=== PATIENT | male | born 1955 | race Caucasian/White ===

== ENCOUNTER 2020-10-25 17:41 | Observation (INO) | payer BC ==
[2020-10-25 18:45] LABS: HCT 42.2 % (39.0-53.0); Lymphocytes % (A) 21 %; MCH 31.2 pg (25.0-35.0); MCHC 35.4 g/dL (31.0-37.0); MCV 88.2 fL (80.0-100.0); Mean Platelet Volume 8.9; Monocytes % (A) 6 %; Neutrophils % (A) 69 %; Platelet Count 195 k/uL (150-450); RBC 4.79 m/uL (4.30-5.90); RDW 12.3 % (11.5-15.5); WBC 6.4 k/uL (3.8-10.6)
[2020-10-25 18:46] LABS: Basophils # (A) 0.1 k/uL (0-0.2); Basophils % (A) 1 %; Eosinophils # (A) 0.2 k/uL (0-0.7); Eosinophils % (A) 3 %; Lymphocytes # (A) 1.4 k/uL (1.0-4.8); Monocytes # (A) 0.4 k/uL (0-1.0); Neutrophils # (A) 4.4 k/uL (1.3-7.7)
[2020-10-25 18:57] LABS: ALT 17 U/L (4-49); AST 18 U/L (17-59); African American GFR (CKD) 75 (>60 ml/min/1.73 sqM); Alcohol <10 mg/dL; Alkaline Phosphatase 48 U/L (38-126); Anion Gap 7 mmol/L; Blood Urea Nitrogen 24 mg/dL (9-20); Calcium 9.8 mg/dL (8.4-10.2); Carbon Dioxide 24 mmol/L (22-30); Chloride 107 mmol/L (98-107); Glucose 128 mg/dL (74-99); Non-African American GFR(CKD) 65 (>60 ml/min/1.73 sqM); Sodium 138 mmol/L (137-145); Total Bilirubin 0.3 mg/dL (0.2-1.3); Total Protein 6.3 g/dL (6.3-8.2)
[2020-10-25 19:31] LABS: INR 0.9 (<1.2); Partial Thromboplastin Time 22.2 sec (22.0-30.0)
[2020-10-25 19:34] LABS: Appearance,Urine Clear (Clear); Bilirubin,Urine Negative (Negative); Blood,Urine Negative (Negative); Color,Urine Yellow; Glucose,Urine (UA) Negative (Negative); Ketones,Urine Negative (Negative); Leukocyte Esterase,Urine Negative (Negative); Nitrite,Urine Negative (Negative); PH, Urine 5.5 (5.0-8.0); Protein,Urine Negative (Negative); Specific Gravity,Urine 1.015 (1.001-1.035); Urobilinogen,Urine <2.0 mg/dL (<2.0)
[2020-10-25 19:46] LABS: Amphetamine Screen,Urine Not Detected (NotDetected); Barbiturate Screen,Urine Not Detected (NotDetected); Benzodiazepines Screen,Urine Not Detected (NotDetected); Cocaine Screen,Urine Not Detected (NotDetected); Methadone Screen, Urine Not Detected (NotDetected); Opiate Screen,Urine Not Detected (NotDetected); Oxycodone Screen, Urine Not Detected (NotDetected); Phencyclidine Screen,Urine Not Detected (NotDetected); Tricyclic Antidepressant,Urine Not Detected (NotDetected); Urn Cannabinoid Scrn Not Detected (NotDetected)
--- NOTE | 2020-10-25 19:48 | CT ---
EXAMINATION TYPE: CT brain wo con DATE OF EXAM: 10/25/2020 HISTORY: Altered mental status.. CT DLP: 1145.8 mGycm. Automated Exposure Control for Dose Reduction was Utilized. TECHNIQUE: CT scan of the head is performed without contrast. COMPARISON: None FINDINGS: There is no acute intracranial hemorrhage, midline shift, or mass effect identified. No abnormal extr a-axial fluid collection. No ventriculomegaly. No depressed calvarial fracture. Visualized sinuses an d mastoid air cells are clear. IMPRESSION: No acute intracranial hemorrhage, midline shift, or mass effect.
--- NOTE | 2020-10-25 19:57 | XR ---
EXAMINATION TYPE: XR chest 2V DATE OF EXAM: 10/25/2020 CLINICAL HISTORY: altered mental status. TECHNIQUE: Frontal and lateral view of the chest. COMPARISON: None FINDINGS: The cardiomediastinal silhouette is within normal limits for size. Pulmonary vasculature i s normal. There is no focal air space opacity. No pleural effusion. No pneumothorax seen. No acute d isplaced osseous fracture. IMPRESSION: No acute cardiopulmonary process.
--- NOTE | 2020-10-25 20:05 | CT ---
EXAMINATION TYPE: CT angio head neck DATE OF EXAM: 10/25/2020 HISTORY: Altered mental status COMPARISON: Same day CT brain without Automated Exposure Control for Dose Reduction was Utilized. TECHNIQUE: CTA scan of the head and neck is performed , patient injected with 65 mL of Isovue 370, a xial images are obtained, coronal and sagittal reformatted images are reviewed. 3D reconstructed imag es are created on an independent workstation and reviewed. FINDINGS: Carotid/Vascular Structures: The bilateral common carotid and internal carotid arteries are widely pa tent with no evidence of occlusion, hemodynamically significant stenosis, or aneurysm. The bilateral vertebral arteries are patent. [place] of [place]: The bilateral A1 segments join into a large single A2 segment, which may represent azygos variant anatomy. The remainder of the upper [place] of [place] is patent with no occlusion or aneurysm . IMPRESSION: 1. The bilateral A1 segments join into a large single A2 segment. This may represent variant anatomy azygos anterior cerebral artery. A2 segment occlusion felt to be less likely, however not excluded. C linical correlation is recommended. 2. No evidence of occlusion or significant stenosis of the arteries of the neck. NASCET criteria was used in interpretation of this exam?
[2020-10-25] MEDS ORDERED: ACETAMINOPHEN TAB 325 MG TAB PO PRN (21:05)
[2020-10-25] MEDS ORDERED: NALOXONE 0.4 MG/ML 1 ML VIAL IV PRN (21:05)
[2020-10-25] MEDS ORDERED: ASPIRIN 325 MG TAB PO STA (21:07)
--- NOTE | 2020-10-25 21:43 | ED ---
General Adult HPI - General Chief complaint: Altered Mental Status Stated complaint: Neuro Symptoms/Loss of Memory Time Seen by Provider: 10/25/20 18:04 Source: patient Mode of arrival: ambulatory Limitations: no limitations - History of Present Illness Initial comments: I evaluated the patient and he was placed in a room. Patient is a 65-year-old male with past medical history remarkable for hypertension who presents emergency Department complaining of difficult to explain confusion. Patient works from home and was working on his computer this morning around 10 or 11 AM when he experienced episodes of confusion which included the inability to use his computer. He states that he forgot how to use a computer. States this is never occurred previously. He denies any other acute complaints. Skin confusion seems to come and go but hasn't been as bad since this morning. He has a difficult time describing it. Denies any weakness, numbness. Denies any headache, falls, trauma. Denies any chest pain, shortness breath, abdominal pain, nausea, vomiting. Denies any exposure COVID-19. His no other acute complaints at this time. He was not vaccinated for COVID19. - Related Data Home Medications Medication Instructions Recorded Confirmed Aspirin EC [Ecotrin Low Dose] 81 mg PO DAILY 10/25/20 10/25/20 Cholecalciferol [Vitamin D3 (25 25 mcg PO DAILY 10/25/20 10/25/20 Mcg = 1000 Iu)] Pravastatin Sodium [Pravachol] 20 mg PO DAILY 10/25/20 10/25/20 Tamsulosin HCl [Flomax] 0.4 mg PO DAILY 10/25/20 10/25/20 Zinc 50 mg PO DAILY 10/25/20 10/25/20 allopurinoL [Zyloprim] 100 mg PO DAILY 10/25/20 10/25/20 amLODIPine BESYLATE/BENAZEPRIL 1 cap PO DAILY 10/25/20 10/25/20 [amLODIPine BESYLATE/BENAZEPRIL 5-10 mg] Allergies Allergy/AdvReac Type Severity Reaction Status Date / Time No Known Allergies Allergy Verified 10/25/20 18:59 Review of Systems ROS Statement: Those systems with pertinent positive or pertinent negative responses have been documented in the HPI. Review of Systems: CONST: Denies fever EYES: Denies blurry vision ENT: Denies nasal congestion C/V: Denies Chest pain RESP: Denies shortness of breath GI: Denies abdominal pain : Denies dysuria SKIN: Denies rash. MSK: Denies joint pain. NEURO: Endorses confusion ROS Other: All systems not noted in ROS Statement are negative. Past Medical History Past Medical History: Hypertension History of Any Multi-Drug Resistant Organisms: None Reported Past Surgical History: Joint Replacement Additional Past Surgical History / Comment(s): lt knee Past Psychological History: No Psychological Hx Reported Smoking Status: Never smoker Past Alcohol Use History: Occasional Past Drug Use History: None Reported General Exam - General Exam Comments Initial Comments: General: Appears in no acute distress. HEAD: Normal with no signs of head trauma. EYES: PERRLA, EOMI, conjunctiva normal, no discharge. Pupils are 3 mm bilaterally. No visual deficits. ENT: Hearing grossly intact, normal oropharynx. RESPIRATORY: Clear breath sounds bilaterally. No wheezes, rales, or rhonchi. C/V: Regular rate and rhythm. S1 and S2 auscultated, no edema, peripheral pulses 2+ and intact throughout ABD: Abd is soft, nontender, nondistended EXT: Normal range of motion, no obvious deformity SKIN: No rashes or lesions observed on exposed skin. NEURO: Alert and oriented 4. Cranial nerves II through XII are intact. No focal sensory strength deficits. Patient's cerebellar function is intact as evident by normal finger to nose testing, intact [id number] testing, as well as negative dysdiadochokinesia. Patient is able to ambulate without difficulty. GCS is 15. NIH stroke scale is 0. No confusion is elicited at this time. Limitations: no limitations Course Vital Signs 10/25/20 10/25/20 17:55 19:57 Temperature 98.6 F Pulse Rate 61 52 L Respiratory 20 18 Rate Blood Pressure 134/89 135/99 O2 Sat by Pulse 96 97 Oximetry Medical Decision Making - Medical Decision Making Based on the patient's presentation and physical exam, I'm uncertain what is causing his current confusion. He is also endorsing generalized fatigue. Therefore we will obtain basic labs, troponin, as well as CT imaging of the head. Patient was in agreement this plan. Stroke pager does not need to be activated as his NIH is 0. EKG and chest x-ray will also be obtained., 19 t esting will be obtained. He'll be given a 1 L fluid bolus. He was in agreement this plan. Patient's EKG showed sinus bradycardia but no signs of acute ischemia. Chest x- ray showed no acute cardiopulmonary process. Patient's lavatory studies are relatively unremarkable, including an indeterminate troponin 0.017, as well as a negative Covid screening. CT brain without contrast showed no acute intracranial process. CTA of the neck and brain revealed findings suggestive of a anatomical variant involving segments of the [place] of [place], without evidence of acute blockage. Remainder of the CT head is unremarkable. On reevaluation, patient is still subjectively concerned regarding his confusion earlier. States he feels unchanged and is still fatigued. He is alert and oriented 4. We discussed the results of his imaging and labs and That I would like to admit him to the hospital for neurology evaluation and MRI. He was in agreement this plan. Patient was given an aspirin. I spoke with neurology, Dr. Moses who was in agreement this plan. I spoke with the admitting physician, Dr. Dalton who accepted the patient. Patient was therefore admitted to observation to telemetry bed in stable condition. - Lab Data Result diagrams: 10/25/20 18:34 10/25/20 18:34 Lab Results 10/25/20 10/25/20 10/25/20 Range/Units 18:34 18:34 18:34 WBC 6.4 (3.8-10.6) k/uL RBC 4.79 (4.30-5.90) m/uL Hgb 15.0 (13.0-17.5) gm/dL Hct 42.2 (39.0-53.0) % MCV 88.2 (80.0-100.0) fL MCH 31.2 (25.0-35.0) pg MCHC 35.4 (31.0-37.0) g/dL RDW 12.3 (11.5-15.5) % Plt Count 195 (150-450) k/uL MPV 8.9 Neutrophils % 69 % Lymphocytes % 21 % Monocytes % 6 % Eosinophils % 3 % Basophils % 1 % Neutrophils # 4.4 (1.3-7.7) k/uL Lymphocytes # 1.4 (1.0-4.8) k/uL Monocytes # 0.4 (0-1.0) k/uL Eosinophils # 0.2 (0-0.7) k/uL Basophils # 0.1 (0-0.2) k/uL PT 10.0 (9.0-12.0) sec INR 0.9 (<1.2) APTT 22.2 (22.0-30.0) sec Sodium (137-145) mmol/L Potassium (3.5-5.1) mmol/L Chloride (98-107) mmol/L Carbon Dioxide (22-30) mmol/L Anion Gap mmol/L BUN (9-20) mg/dL Creatinine (0.66-1.25) mg/dL Est GFR (CKD-EPI)AfAm (>60 ml/min/1.73 sqM) Est GFR (CKD-EPI)NonAf (>60 ml/min/1.73 sqM) Glucose (74-99) mg/dL Calcium (8.4-10.2) mg/dL Total Bilirubin (0.2-1.3) mg/dL AST (17-59) U/L ALT (4-49) U/L Alkaline Phosphatase (38-126) U/L Ammonia (<30) umol/L Troponin I (0.000-0.034) ng/mL Total Protein (6.3-8.2) g/dL Albumin (3.5-5.0) g/dL Urine Color Yellow Urine Appearance Clear (Clear) Urine pH 5.5 (5.0-8.0) Ur Specific [place] 1.015 (1.001-1.035) Urine Protein Negative (Negative) Urine Glucose (UA) Negative (Negative) Urine Ketones Negative (Negative) Urine Blood Negative (Negative) Urine Nitrite Negative (Negative) Urine Bilirubin Negative (Negative) Urine Urobilinogen <2.0 (<2.0) mg/dL Ur Leukocyte Esterase Negative (Negative) Urine Opiates Screen Not Detected (NotDetected) Ur Oxycodone Screen Not Detected (NotDetected) Urine Methadone Screen Not Detected (NotDetected) Ur Propoxyphene Screen Not Detected (NotDetected) Ur Barbiturates Screen Not Detected (NotDetected) U Tricyclic Antidepress Not Detected (NotDetected) Ur Phencyclidine Scrn Not Detected (NotDetected) Ur Amphetamines Screen Not Detected (NotDetected) U Methamphetamines Scrn Not Detected (NotDetected) U Benzodiazepines Scrn Not Detected (NotDetected) Urine Cocaine Screen Not Detected (NotDetected) U Marijuana (THC) Screen Not Detected (NotDetected) Serum Alcohol mg/dL Coronavirus (PCR) (Not Detectd) 10/25/20 10/25/20 10/25/20 Range/Units 18:34 18:34 18:34 WBC (3.8-10.6) k/uL RBC (4.30-5.90) m/uL Hgb (13.0-17.5) gm/dL Hct (39.0-53.0) % MCV (80.0-100.0) fL MCH (25.0-35.0) pg MCHC (31.0-37.0) g/dL RDW (11.5-15.5) % Plt Count (150-450) k/uL MPV Neutrophils % % Lymphocytes % % Monocytes % % Eosinophils % % Basophils % % Neutrophils # (1.3-7.7) k/uL Lymphocytes # (1.0-4.8) k/uL Monocytes # (0-1.0) k/uL Eosinophils # (0-0.7) k/uL Basophils # (0-0.2) k/uL PT (9.0-12.0) sec INR (<1.2) APTT (22.0-30.0) sec Sodium 138 (137-145) mmol/L Potassium 4.0 (3.5-5.1) mmol/L Chloride 107 (98-107) mmol/L Carbon Dioxide 24 (22-30) mmol/L Anion Gap 7 mmol/L BUN 24 H (9-20) mg/dL Creatinine 1.18 (0.66-1.25) mg/dL Est GFR (CKD-EPI)AfAm 75 (>60 ml/min/1.73 sqM) Est GFR (CKD-EPI)NonAf 65 (>60 ml/min/1.73 sqM) Glucose 128 H (74-99) mg/dL Calcium 9.8 (8.4-10.2) mg/dL Total Bilirubin 0.3 (0.2-1.3) mg/dL AST 18 (17-59) U/L ALT 17 (4-49) U/L Alkaline Phosphatase 48 (38-126) U/L Ammonia 24 (<30) umol/L Troponin I 0.017 (0.000-0.034) ng/mL Total Protein 6.3 (6.3-8.2) g/dL Albumin 4.0 (3.5-5.0) g/dL Urine Color Urine Appearance (Clear) Urine pH (5.0-8.0) Ur Specific [place] (1.001-1.035) Urine Protein (Negative) Urine Glucose (UA) (Negative) Urine Ketones (Negative) Urine Blood (Negative) Urine Nitrite (Negative) Urine Bilirubin (Negative) Urine Urobilinogen (<2.0) mg/dL Ur Leukocyte Esterase (Negative) Urine Opiates Screen (NotDetected) Ur Oxycodone Screen (NotDetected) Urine Methadone Screen (NotDetected) Ur Propoxyphene Screen (NotDetected) Ur Barbiturates Screen (NotDetected) U Tricyclic Antidepress (NotDetected) Ur Phencyclidine Scrn (NotDetected) Ur Amphetamines Screen (NotDetected) U Methamphetamines Scrn (NotDetected) U Benzodiazepines Scrn (NotDetected) Urine Cocaine Screen (NotDetected) U Marijuana (THC) Screen (NotDetected) Serum Alcohol <10 mg/dL Coronavirus (PCR) (Not Detectd) 10/25/20 Range/Units 18:34 WBC (3.8-10.6) k/uL RBC (4.30-5.90) m/uL Hgb (13.0-17.5) gm/dL Hct (39.0-53.0) % MCV (80.0-100.0) fL MCH (25.0-35.0) pg MCHC (31.0-37.0) g/dL RDW (11.5-15.5) % Plt Count (150-450) k/uL MPV Neutrophils % % Lymphocytes % % Monocytes % % Eosinophils % % Basophils % % Neutrophils # (1.3-7.7) k/uL Lymphocytes # (1.0-4.8) k/uL Monocytes # (0-1.0) k/uL Eosinophils # (0-0.7) k/uL Basophils # (0-0.2) k/uL PT (9.0-12.0) sec INR (<1.2) APTT (22.0-30.0) sec Sodium (137-145) mmol/L Potassium (3.5-5.1) mmol/L Chloride (98-107) mmol/L Carbon Dioxide (22-30) mmol/L Anion Gap mmol/L BUN (9-20) mg/dL Creatinine (0.66-1.25) mg/dL Est GFR (CKD-EPI)AfAm (>60 ml/min/1.73 sqM) Est GFR (CKD-EPI)NonAf (>60 ml/min/1.73 sqM) Glucose (74-99) mg/dL Calcium (8.4-10.2) mg/dL Total Bilirubin (0.2-1.3) mg/dL AST (17-59) U/L ALT (4-49) U/L Alkaline Phosphatase (38-126) U/L Ammonia (<30) umol/L Troponin I (0.000-0.034) ng/mL Total Protein (6.3-8.2) g/dL Albumin (3.5-5.0) g/dL Urine Color Urine Appearance (Clear) Urine pH (5.0-8.0) Ur Specific [place] (1.001-1.035) Urine Protein (Negative) Urine Glucose (UA) (Negative) Urine Ketones (Negative) Urine Blood (Negative) Urine Nitrite (Negative) Urine Bilirubin (Negative) Urine Urobilinogen (<2.0) mg/dL Ur Leukocyte Esterase (Negative) Urine Opiates Screen (NotDetected) Ur Oxycodone Screen (NotDetected) Urine Methadone Screen (NotDetected) Ur Propoxyphene Screen (NotDetected) Ur Barbiturates Screen (NotDetected) U Tricyclic Antidepress (NotDetected) Ur Phencyclidine Scrn (NotDetected) Ur Amphetamines Screen (NotDetected) U Methamphetamines Scrn (NotDetected) U Benzodiazepines Scrn (NotDetected) Urine Cocaine Screen (NotDetected) U Marijuana (THC) Screen (NotDetected) Serum Alcohol mg/dL Coronavirus (PCR) Not Detected (Not Detectd) - EKG Data -: EKG Interpreted by Me EKG Comments: 12-lead Electrocardiogram Interpretation Note EKG was reviewed and interpreted by myself. 12-lead ECG performed at 18:18 is interpreted by me as revealing sinus bradycardia at a rate of 56 beats per minute. B[place] is normal. OK interval is 164 ms, QRS duration is 90 ms, QTc is 414 ms.. There were no ST or T wave abnormalities to suggest myocardial ischemia or injury. R wave progression across the precordium was satisfactory. By my interpretation this EKG is non-diagnostic for acute ischemia. Disposition Clinical Impression: Confusion, Fatigue Disposition: ADMITTED IP TO THIS HOSP Condition: Stable Referrals: Carlos Husain DO [Primary Care Provider] - 1-2 days
--- NOTE | 2020-10-26 00:49 | P.HPIM ---
History of Present Illness H&P Date: 10/25/20 Patient is a 65-year-old male with a PMH of hypertension who presented to the emergency room with complaints of confusion. The patient reports that he had been working at his office at around 11 AM this morning when he suddenly felt that he was not able to navigate his computer. He reports that he felt as though he had simply forgotten how to use the mouse with a keyboard. He subsequently decided to leave his office and drove to separate meetings without incident. He subsequently came back to the office and found he was still unable to use his computer, at which time he decided to come to the emergency room. During the interview, the patient asked if he had a likely panic attack. Upon further questioning, he stated that he has been under a lot of stress recently as him and his purchased a condominium in [place] that was beyond their budget. He reports that the 15 day window backing out of the contract had yesterday, and he feels that it might be causing an undue amount of stress on him over the past 24 hours. He states that his [id number] had history of panic attacks and that he did not have the characteristic shortness of breath or chest tightness and sweating but did feel an overwhelming sensation that allowed him to not work on his computer. He denied any history of panic attacks or anxiety and states that he is "blessed" with a wonderful life. Den ied suicidal ideation. Denied a history of CVA. He denied experiencing visual disturbances, weakness, numbness, tingling. Also denied facial asymmetries, or speech impairment. Also denied chest discomfort, shortness of breath, fever, chills, cough. Denied nausea, vomiting, abdominal pain, diarrhea. Imaging in the emergency room unremarkable including brain CT with CT angiogram showing a possible normal variant. EKG showing sinus bradycardia [address]/T-wave changes noted as reviewed by me. Review of systems: Pertinent positives and negatives as discussed in HPI, a complete review of systems was performed and all other systems are negative. Physical examination: General: non toxic, no distress, appears at stated age, obese Derm: no unusual rashes/lesions no unusual ecchymoses, warm, dry Head: atraumatic, normocephalic, symmetric Eyes: EOMI, no lid lag, anicteric sclera, pupils equal round reactive to light ENT: Nose and ears atraumatic, no thrush, no pharyngeal erythema Neck: No thyromegaly, no cervical lymphadenopathy, trachea midline, supple Mouth: no lip lesion, mucus membranes moist Cardiovascular: S1S2 reg, no murmur, positive posterior tibial pulse bilateral, no edema, capillary refill less than 2 seconds Lungs: CTA bilateral, no rhonchi, no rales , no accessory muscle use Abdominal: soft, nontender to palpation, no guarding, no appreciable organomegaly, normal bowel sounds Ext: no gross muscle atrophy, muscle strength 5 out of 5 in all 4 extremities grossly, no contractures, Neuro: CN II-XI grossly intact, light touch intact all 4 extremities, finger to nose within normal limits, Psych: Alert, oriented, appropriate affect Assessment/plan Inability to operate computer, suspected panic attack -Low suspicion for CVA at this time -Neuro checks -Cardiac monitoring -Psychiatry consult -Echocardiogram Chronic conditions: Hypertension, hyperlipidemia -Continue with home meds DVT prophylaxis -Heparin subcu The patient is admitted with an anticipated less than 2 midnight stay for evaluation of confusion. CODE STATUS: Full Code Discussed with: Patient Anticipated discharge date: in am Anticipated discharge place: Home Past Medical History Past Medical History: Hypertension History of Any Multi-Drug Resistant Organisms: None Reported Past Surgical History: Joint Replacement Additional Past Surgical History / Comment(s): lt knee Past Anesthesia/Blood Transfusion Reactions: No Reported Reaction Past Psychological History: No Psychological Hx Reported Smoking Status: Never smoker Past Alcohol Use History: Occasional Past Drug Use History: None Reported - Past Family History Father Family Medical History: Hypertension Medications and Allergies Home Medications Medication Instructions Recorded Confirmed Type Aspirin EC [Ecotrin Low Dose] 81 mg PO DAILY 10/25/20 10/25/20 History Cholecalciferol [Vitamin D3 (25 25 mcg PO DAILY 10/25/20 10/25/20 History Mcg = 1000 Iu)] Pravastatin Sodium [Pravachol] 20 mg PO DAILY 10/25/20 10/25/20 History Tamsulosin HCl [Flomax] 0.4 mg PO DAILY 10/25/20 10/25/20 History Zinc 50 mg PO DAILY 10/25/20 10/25/20 History allopurinoL [Zyloprim] 100 mg PO DAILY 10/25/20 10/25/20 History amLODIPine BESYLATE/BENAZEPRIL 1 cap PO DAILY 10/25/20 10/25/20 History [amLODIPine BESYLATE/BENAZEPRIL 5-10 mg] Allergies Allergy/AdvReac Type Severity Reaction Status Date / Time No Known Allergies Allergy Verified 10/25/20 18:59 Physical Exam Vitals: Vital Signs Temp Pulse Pulse Resp BP BP Pulse Ox 10/25/20 22:45 98.4 F 56 L 20 159/100 96 10/25/20 19:57 52 L 18 135/99 97 10/25/20 17:55 98.6 F 61 20 134/89 96 Intake and Output 10/25/20 10/25/20 10/26/20 14:59 22:59 06:59 Other: Weight 113.398 kg Results CBC & Chem 7: 10/25/20 18:34 10/25/20 18:34 Labs: Abnormal Lab Results - Last 24 Hours (Table) 10/25/20 Range/Units 18:34 BUN 24 H (9-20) mg/dL Glucose 128 H (74-99) mg/dL Thrombosis Risk Factor Assmnt - Choose All That Apply Each Factor Represents 1 point: Obesity (BMI >25) Each Risk Factor Represents 2 Points: Age 61-74 years Other congenital or acquired thrombophilia - If yes, enter type in comment: No Thrombosis Risk Factor Assessment Total Risk Factor Score: 3 Thrombosis Risk Factor Assessment Level: Moderate Risk
[2020-10-26] MEDS ORDERED: HEPARIN SODIUM,PORCINE/PF 5,000 UNIT/0.5 ML SYRINGE SQ SCH (08:00)
[2020-10-26 08:07] VITALS: BP 136/97; PULSE 58; RESP 17; TEMP 98.4
[2020-10-26] MEDS ORDERED: PRAVASTATIN SODIUM 20 MG TAB PO SCH (09:00)
[2020-10-26] MEDS ORDERED: lisinopriL 10 MG TAB PO SCH (09:00)
[2020-10-26] MEDS ORDERED: TAMSULOSIN 0.4 MG CAP.ER.24H PO SCH (09:00)
[2020-10-26] MEDS ORDERED: ASPIRIN 81 MG PO SCH (09:00)
[2020-10-26] MEDS ORDERED: ZINC SULFATE 220 MG CAP PO SCH (09:00)
[2020-10-26] MEDS ORDERED: CHOLECALCIFEROL 25 MCG (1000 IU) TABLET PO SCH (09:00)
[2020-10-26] MEDS ORDERED: amLODIPine 5 MG TAB PO SCH (09:00)
[2020-10-26] MEDS ORDERED: allopurinoL 100 MG TAB PO SCH (09:00)
--- NOTE | 2020-10-26 10:00 | ECHOF ---
Referral Reason:r/o CVA MEASUREMENTS -------- HEIGHT: 188.0 cm WEIGHT: 113.4 kg BP: 138/88 RVIDd: 3.7 cm (< 3.3) IVSd: 1.5 cm (0.6 - 1.1) LVIDd: 4.4 cm (3.9 - 5.3) LVPWd: 1.4 cm (0.6 - 1.1) IVSs: 1.9 cm LVIDs: 2.6 cm LVPWs: 1.9 cm LA Diam: 4.6 cm (2.7 - 3.8) LAESV Index (A-L): 39.36 ml/m Ao Diam: 3.7 cm (2.0 - 3.7) AV Cusp: 2.2 cm (1.5 - 2.6) MV EXCURSION: 17.180 mm (> 18.000) MV EF SLOPE: 57 mm/s (70 - 150) EPSS: 0.6 cm MV E Ney: 0.69 m/s MV DecT: 260 ms MV A Ney: 0.54 m/s MV E/A Ratio: 1.27 RAP: 5.00 mmHg RVSP: 28.98 mmHg FINDINGS -------- Resting bradycardia (HR<60bpm). This was a technically good study. The left ventricular size is normal. There is moderate concentric left ventricular hypertrophy. O verall left ventricular systolic function is normal with, an EF between 60 - 65 %. The right ventricle is mildly enlarged. LA is moderately dilated 34-39 ml/m2 The right atrium is normal in size. Interatrial and interventricular septum intact. The aortic valve is trileaflet, and appears structurally normal. No aortic stenosis or regurgitation. There is trace to mild mitral regurgitation. Trace tricuspid regurgitation present. There is no pulmonic regurgitation present. The aortic root size is normal. Normal inferior vena cava with normal inspiratory collapse consistent with estimated right atrial pre ssure of 5 mmHg. There is no pericardial effusion. CONCLUSIONS -------- 1. The left ventricular size is normal. 2. There is moderate concentric left ventricular hypertrophy. 3. Overall left ventricular systolic function is normal with, an EF between 60 - 65 %. 4. The right ventricle is mildly enlarged. 5. LA is moderately dilated 34-39 ml/m2 6. The aortic valve is trileaflet, and appears structurally normal. No aortic stenosis or regurgitati on. 7. There is trace to mild mitral regurgitation. 8. Trace tricuspid regurgitation present. 9. There is no pericardial effusion. CONSULTING SENIOR PRACTICE DIRECTOR: Iraida Keller RDCS
--- NOTE | 2020-10-26 14:50 | P.DS ---
Providers Date of admission: 10/25/20 21:05 Expected date of discharge: 10/26/20 Attending physician: Dianne Dalton MD Consults: 10/26/20 00:47 Consult Physician Urgent Consulting Provider: Prashanth Conner Consult Reason/Comments: Suspected panic attack Do you want consulting provider notified?: Already Contacted Primary care physician: [facility] Course: This is a 65-year-old male with past medical history significant for essential hypertension who presented to the emergency room with some confusion while he was working on the computer at his desk. Patient was evaluated in the ER and computed tomography scan of the brain and CT angiogram of the head and neck showed no acute abnormalities. Patient was THOUGHT to have a panic attack and he was placed on observation. His overall condition improved significantly. He was seen and evaluated by me on the day of discharge. Patient denies any headache, numbness, or weakness anywhere in his body. He was also evaluated by psychiatry. Patient was cleared for discharge home. He will resume his home medications and follow up with his PCP as directed. General: The patient is awake and alert, in no distress Eye: there is normal conjunctiva bilaterally. Neck: The neck is supple, there is no JVD. Cardiovascular: Normal S1-S2, no S3-S4, no murmurs. Respiratory: Lungs clear to auscultation bilaterally Gastrointestinal: Abdomen is soft, nontender Musculoskeletal: There is no pedal edema. Neurological:. Speech is normal. Skin: Skin is warm and dry Patient Condition at Discharge: Stable Plan - Discharge Summary Discharge Rx Participant: No New Discharge Prescriptions: Continue amLODIPine BESYLATE/BENAZEPRIL [amLODIPine BESYLATE/BENAZEPRIL 5-10 mg] 1 cap PO DAILY allopurinoL [Zyloprim] 100 mg PO DAILY Tamsulosin HCl [Flomax] 0.4 mg PO DAILY Zinc 50 mg PO DAILY Pravastatin Sodium [Pravachol] 20 mg PO DAILY Aspirin EC [Ecotrin Low Dose] 81 mg PO DAILY Cholecalciferol [Vitamin D3 (25 Mcg = 1000 Iu)] 25 mcg PO DAILY Discharge Medication List Aspirin EC [Ecotrin Low Dose] 81 mg PO DAILY 10/25/20 [History] Cholecalciferol [Vitamin D3 (25 Mcg = 1000 Iu)] 25 mcg PO DAILY 10/25/20 [History] Pravastatin Sodium [Pravachol] 20 mg PO DAILY 10/25/20 [History] Tamsulosin HCl [Flomax] 0.4 mg PO DAILY 10/25/20 [History] Zinc 50 mg PO DAILY 10/25/20 [History] allopurinoL [Zyloprim] 100 mg PO DAILY 10/25/20 [History] amLODIPine BESYLATE/BENAZEPRIL [amLODIPine BESYLATE/BENAZEPRIL 5-10 mg] 1 cap PO DAILY 10/25/20 [History] Follow up Appointment(s)/Referral(s): Carlos Husain DO [Primary Care Provider] - 1-2 days Discharge Disposition: HOME SELF-CARE
--- NOTE | 2020-10-26 17:49 | CONS ---
CONSULTATION DATE OF SERVICE: 10/26/2020. PURPOSE FOR CONSULTATION: Evaluate for confusion. HISTORY OF PRESENTING ILLNESS: The patient is a 65-year-old male. He presented to the ED after having experienced several hours where he was confused in regard to not being able to perform usual functions on his computer as part of his work. I had met with the patient and his . He provided most of the history, with his filling in some details. He said that around 11:15 he was feeling very rushed in his work. He said it felt like his thinking got into a "fog." He noted that he had lots of files pulled up on his computer that he would typically work on. He said he found himself not able to function and know what to do with the individual files. He said that he looked at some e-mails that he had sent and was not able to recall having sent those e-mails. He called his after some time. His noted that on the telephone call he was repeating himself continuously. He was also hesitant in his speech where he would stop in the middle of a thought and have trouble completing the thought. To her, he seemed anxious. 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 He said he started counting various supplies that were there but then got feeling in a confused state about his counting and that he just gave up and went back to work. Around 4 in the afternoon he drove home. He was continuing to feel disorganized in his thoughts. He drove for about an hour and 45 minutes in busy traffic. He said he was not aware that he had any difficulties with the drive. When he got home, he got back on his computer and found he was having the same problems where he did not know what to do to perform basic tasks. According to his , the patient is normally very quick on the computer and overall is a very organized person. She notes that he does get stressed at times where he may get quite intense, though he can recover from that fairly quickly. According to both, the patient may have some issues with anxiety on and off, though for the most part has been feeling fairly good in his general mental health. He has not had issues with depression. He has not been on any psychotropic medications nor been in any mental health care. He noted that his father suicided in 1983, which was a significant trauma for him. At that time his father had depression and alcohol issues. The patient has not had any significant past neurologic events. He noted that he did play hockey up to about 19 years ago. He did not think that during that time he might have suffered any significant head trauma. He has not had a history of seizures, falls, confusion. He said that things did seem to clear up for him since he has been in the hospital. He notes that yesterday throughout the time he was having these difficulties he did not note any problems with ambulation, coordination, balance, headaches, visual difficulties or weakness. His stated that both on the telephone and also when he was home his speech was normal as far as enunciation. She did not note any facial asymmetry. The patient did question whether he might have had some kind of panic attack, though he did not note any chest-related symptoms, tachycardia or GI distress. Current medications include zyloprim, Norvasc, 81 mg aspirin, Zestril, Pravachol, Flomax. MENTAL STATUS EXAM: The patient was lying in bed with his head up. He gave good eye contact. He answered questions appropriately. His thoughts were clear, coherent and goal-directed. He was spontaneous and interactive. His affect was in a reasonable range. He smiled. He had a friendly manner. His mood was even. He did not appear distressed. There was no indication of thought disorder. He denied thoughts of harm to self or others. On cognitive exam he was oriented x3 and alert. He could give details of events that were consistent with what is documented in the medical record. He could name most of his medications, though noted some of his medications are newer to him. He could say who the President and Mixing Operator were. He could give the days of the week in reverse order without difficulties. He could recall 3/3 objects in 4 minutes. Insight and judgment were good. Fund of knowledge was above average. ASSESSMENT: This 65-year-old male has had an episode of some disorganized thinking in relationship to his usual computer functioning at his work. He indicates that the best he is aware of at present the issues have resolved themselves. Imaging has been unremarkable. There are some positive findings on echocardiogram, which do not appear to relate to his presentation. At this point, there are no psychiatric or mental health interventions indicated. I discussed with the patient to be watchful for any range of neurologic symptoms and also to have good awareness when he is driving his car. We discussed that his symptoms may have related to anxiety. He apparently does have a tendency to run a low pulse, and it is possible he could have had panic symptoms with bradycardia that may have impacted some of his thinking. I discussed a therapeutic walking program to help reduce anxiety and that he could start a program on a regular basis. If some of these symptoms were to re-emerge, he could try to utilize therapeutic walking to see if that might help normalize the difficulties he had, should they re- emerge. The patient did state that his total cholesterol was around 170. I encouraged the patient to talk to his primary care physician to look at assertive means to manage lipids as a preventive program, especially given some of the heart findings that he has. From a psychiatric standpoint the patient is stable and cleared to be discharged. ESTHER / PARUL: [id number] /
== END 2020-10-26 15:00 | disposition home or self-care (01) ==
LOC: EC 17:41 → 6NMEDSUR 21:05
PROVIDERS: ADMIT Internal Medicine; ATTEND Internal Medicine
DX: R41.0 Disorientation, unspecified (principal); R53.83 Other fatigue; R00.1 Bradycardia, unspecified; I11.9 Hypertensive heart disease without heart failure; E78.5 Hyperlipidemia, unspecified; R29.700 NIHSS score 0; R40.2412 Glasgow coma scale score 13-15, at arrival to emergency department; E66.9 Obesity, unspecified; Z68.32 Body mass index [BMI] 32.0-32.9, adult; Z20.822 Contact with and (suspected) exposure to COVID-19; Z79.82 Long term (current) use of aspirin; Z79.899 Other long term (current) drug therapy; Z96.652 Presence of left artificial knee joint; Z82.49 Family history of ischemic heart disease and other diseases of the circulatory system; Z81.8 Family history of other mental and behavioral disorders
CPT/HCPCS: 96372; 99285; 36415; 93005; 93306; 80053; 82140; 84484 ×2; 85025; 85610; 85730; 81003; 80306; 80320; 87635; 71046; 70496; 70450; 70498; G0378 ×2; Q9967; J1644

== ENCOUNTER → 2024-01-07 | Outpatient (CLI) | payer MEDICARE ==
--- NOTE | 2024-01-07 17:20 | XR ---
EXAMINATION TYPE: XR knee complete RT DATE OF EXAM: 01/07/2024 3:03 PM COMPARISON: None CLINICAL INDICATION: Male, 68 years old with history of [id number] RT KNEE PAIN; [facility] TECHNIQUE: XR knee complete RT 3 views submitted. FINDINGS: No evidence of any acute osseous pathology, soft tissue swelling, or joint effusion is no patrice. Soft tissue in the prepatellar space IMPRESSION: 1. Prepatellar soft tissue edema without acute osseous pathology. 2. Mild tricompartmental osteoarthritic changes. [facility], , 01/07/2024 5:18 PM
== END | disposition home or self-care (01) ==
LOC: RADXRYALE 14:45
PROVIDERS: ATTEND Physician Assistant
DX: M17.11 Unilateral primary osteoarthritis, right knee (principal); R60.9 Edema, unspecified

== ENCOUNTER 2024-01-11 12:35 | Inpatient (IN) | payer MEDICARE ==
[2024-01-11 13:33] LABS: Basophils # (A) 0.1 k/uL (0-0.2); Basophils % (A) 1 %; Eosinophils # (A) 0.2 k/uL (0-0.7); Eosinophils % (A) 2 %; HCT 43.5 % (39.0-53.0); HGB 14.5 gm/dL (13.0-17.5); Lymphocytes # (A) 1.6 k/uL (1.0-4.8); Lymphocytes % (A) 23 %; MCH 30.1 pg (25.0-35.0); MCHC 33.2 g/dL (31.0-37.0); MCV 90.7 fL (80.0-100.0); Mean Platelet Volume 8.2; Monocytes # (A) 0.4 k/uL (0-1.0); Monocytes % (A) 6 %; Neutrophils # (A) 4.7 k/uL (1.3-7.7); Neutrophils % (A) 67 %; Platelet Count 229 k/uL (150-450); RDW 12.7 % (11.5-15.5)
[2024-01-11 13:43] LABS: ALT 11 U/L (4-49); AST 17 U/L (17-59); African American GFR (CKD) 76 (>60 ml/min/1.73 sqM); Albumin 3.8 g/dL (3.5-5.0); Alkaline Phosphatase 49 U/L (38-126); Anion Gap 6 mmol/L; Blood Urea Nitrogen 26 mg/dL (9-20); Calcium 9.8 mg/dL (8.4-10.2); Carbon Dioxide 21 mmol/L (22-30); Chloride 110 mmol/L (98-107); Glucose 104 mg/dL (74-99); Lipase 144 U/L (23-300); Magnesium 1.8 mg/dL (1.6-2.3); Non-African American GFR(CKD) 66 (>60 ml/min/1.73 sqM); Partial Thromboplastin Time 24.1 sec (22.0-30.0); Potassium 4.1 mmol/L (3.5-5.1); Prothrombin Time 10.7 sec (10.0-12.5); Sodium 137 mmol/L (137-145); Total Bilirubin 0.8 mg/dL (0.2-1.3); Total Protein 6.4 g/dL (6.3-8.2)
--- NOTE | 2024-01-11 14:14 | XR ---
EXAMINATION TYPE: XR chest 2V DATE OF EXAM: 01/11/2024 1:34 PM COMPARISON: 10/25/2020 CLINICAL INDICATION: Male, 68 years old with history of Chest Pain, , TECHNIQUE: PA and lateral views FINDINGS: Heart normal size. Aorta and pulmonary vasculature within normal limits. Some strandy atelectasis at the lower lungs no consolidation or pleural effusion. Some linear metallic density projects at the ri ght base of the neck, likely external artifact. IMPRESSION: Some strandy lower lung atelectasis. No acute process seen. [facility], , 01/11/2024 2:11 PM
--- NOTE | 2024-01-11 15:03 | ED ---
Chest Pain HPI - General Chief Complaint: Chest Pain Stated Complaint: chest/neck pain,SOB Time Seen by Provider: 01/11/24 12:40 Source: patient Mode of arrival: ambulatory Limitations: no limitations - History of Present Illness Initial Comments: 68-year-old male with past medical history of A-fib hypertension, hyperlipidemia who presents to the emergency department planing of chest pain. Patient states he saw his primary care doctor last week and was just diagnosed with A-fib. He was rate controlled. His doctor did want him to get into a senior account manager. He had an appointment today. States that he was on his way to the appointment but began having some chest pressure which was over the left side of his chest and radiated into his left jaw. Pain started around 11 AM and lasted until 1230 when it spontaneously resolved. Patient has no active chest pain at this time. He is not on any anticoagulation. He has no history of coronary disease. Denies fevers, chills or cough. No ripping or tearing sensation to his back. No other alleviating, precipitating or modifying factors - Related Data Home Medications Medication Instructions Recorded Confirmed Aspirin EC [Ecotrin Low Dose] 81 mg PO DAILY 10/25/20 01/11/24 Tamsulosin HCl [Flomax] 0.4 mg PO DAILY 10/25/20 01/11/24 allopurinoL [Zyloprim] 100 mg PO DAILY 10/25/20 01/11/24 Chlorthalidone [Hygroton] 25 mg PO DAILY 01/11/24 01/11/24 amLODIPine BESYLATE/BENAZEPRIL 1 cap PO DAILY 01/11/24 01/11/24 [Lotrel 5-20 mg Capsule] Allergies Allergy/AdvReac Type Severity Reaction Status Date / Time No Known Allergies Allergy Verified 01/11/24 14:34 Review of Systems ROS Statement: Those systems with pertinent positive or pertinent negative responses have been documented in the HPI. ROS Other: All systems not noted in ROS Statement are negative. Past Medical History Past Medical History: Atrial Fibrillation, Hyperlipidemia, Hypertension History of Any Multi-Drug Resistant Organisms: None Reported Past Surgical History: Joint Replacement Additional Past Surgical History / Comment(s): lt knee Past Anesthesia/Blood Transfusion Reactions: No Reported Reaction Past Psychological History: No Psychological Hx Reported Smoking Status: Never smoker Past Alcohol Use History: Occasional Past Drug Use History: None Reported - Past Family History Father Family Medical History: Hypertension General Exam Limitations: no limitations Course Vital Signs 01/11/24 01/11/24 01/11/24 12:37 14:00 15:00 Temperature 97.5 F L Pulse Rate 90 76 76 Respiratory 20 18 18 Rate Blood Pressure 111/85 124/92 124/90 O2 Sat by Pulse 97 98 98 Oximetry Chest Pain MDM - MDM Was pt. sent in by a medical professional or institution (, [facility], SECRETARY TO BOARD OF COMMISSIONERS, urgent care, hospital, or custodial...) When possible be specific @ -[No] Did you speak to anyone other than the patient for history (EMS, parent, family, police, friend...)? What history was obtained from this source @ -[No] Did you review nursing and triage notes (agree or disagree)? Why? @ -[I reviewed and agree with nursing and triage notes] Were old charts reviewed (outside hosp., previous admission, EMS record, old EKG, old radiological studies, urgent care reports/EKG's, custodial records)? Report findings @ -[No old charts were reviewed] Differential Diagnosis (chest pain, altered mental status, abdominal pain women, abdominal pain men, vaginal bleeding, weakness, fever, dyspnea, syncope, headache, dizziness, GI bleed, back pain, seizure, CVA, palpatations, mental health, musculoskeletal)? @ -[not applicable] EKG interpreted by me (3pts min.). @ -Yes and demonstrates A-fib with a rate of 88. QRS 92 QTc of 407. No acute ST segment elevations or depressions X-rays interpreted by me (1pt min.). @ -[None done] CT interpreted by me (1pt min.). @ -[None done] U/S interpreted by me (1pt. min.). @ -[None done] What testing was considered but not performed or refused? (CT, X-rays, U/S, l abs)? Why? @ -[None] What meds were considered but not given or refused? Why? @ -[None] Did you discuss the management of the patient with other professionals (professionals i.e. [facility] [place], SECRETARY TO BOARD OF COMMISSIONERS, lab, RT, psych nurse, renal social worker, freelance copywriter, teacher, credit compliance officer, piano case maker)? Give summary @ -[No] Was smoking cessation discussed for >3mins.? @ -[No] Was critical care preformed (if so, how long)? @ -[No] Were there social determinants of health that impacted care today? How? (Homelessness, low income, unemployed, alcoholism, drug addiction, transportation, low edu. Level, literacy, decrease access to med. care, residential, rehab)? @ -[No] Was there de-escalation of care discussed even if they declined (Discuss DNR or withdrawal of care, Hospice)? DNR status @ -[No] What co-morbidities impacted this encounter? (DM, HTN, Smoking, COPD, CAD, Cancer, CVA, ARF, Chemo, Hep., AIDS, mental health diagnosis, sleep apnea, morbid obesity)? @ -[None] Was patient admitted / discharged? Hospital course, mention meds given and route, prescriptions, significant lab abnormalities, going to OR and other pertinent info. @ -[hospital course] Undiagnosed new problem with uncertain prognosis? @ -[No] Drug Therapy requiring intensive monitoring for toxicity (Heparin, Nitro, Insulin, Cardizem)? @ -[No] Were any procedures done? @ -[No] Diagnosis/symptom? @ -[default] Acute, or Chronic, or Acute on Chronic? @ -[default] Uncomplicated (without systemic symptoms) or Complicated (systemic symptoms)? @ -[default] Side effects of treatment? @ -[No] Exacerbation, Progression, or Severe Exacerbation? @ -[No] Poses a threat to life or bodily function? How? (Chest pain, [place], [place], pneumonia, PE, COPD, DKA, ARF, appy, cholecystitis, CVA, Diverticulitis, Homicidal, Suicidal, threat to staff... and all critical care pts) @ -[No] Disposition Clinical Impression: Chest pain, New onset a-fib Disposition: ADMITTED IP TO THIS [facility] Condition: Stable Is patient prescribed a controlled substance at d/c from ED?: No Referrals: Arvin Sutton DO [Primary Care Provider] - 1-2 days Time of Disposition: 15:07 Decision to Admit Reason: Admit from EC Decision Date: 01/11/24 Decision Time: 15:07
[2024-01-11] MEDS ORDERED: NALOXONE 0.4 MG/ML 1 ML VIAL IV PRN (15:07)
[2024-01-11] MEDS: ASPIRIN 81 MG PO STA (15:51)
--- NOTE | 2024-01-11 16:31 | P.HPIM ---
History of Present Illness H&P Date: 01/11/24 History of Presenting Illness: Patient is a very pleasant 68-year-old male with a past medical history of BPH, hypertension, hyperlipidemia, and recently diagnosed atrial fibrillation. He presented to the emergency department with a chief complaint of chest pain and palpitations. Patient reports over the past month he has been noticing an increased shortness of breath worse with exertion and made an appointment with his PCP last week and was informed that he had a new diagnosis of atrial fibrillation and was scheduled to be evaluated by human resources team member this morning. Patient reports this morning after eating some toast for breakfast and just sitting in the chair watching TV and resting he suddenly developed pain to his left anterior chest radiating to midsternal chest and up into the left side of his neck and lower jaw. Patient reports this pain was accompanied by feelings of palpitations like his heart was racing described this pain as a strong pressure. He denies experiencing pain like this in the past and reports initially he was trying to hold out until he went to the human resources team member office this afternoon but states when the pain did not go away he became concerned and knew he should go to the hospital for evaluation. Patient reports this pain lasted approximately an hour and a half prior to resolving without intervention. Patient denies having any headache, lightheadedness, dizziness, shortness of breath at rest, cough or congestion, nausea, vomiting, or experiencing any numbness/tingling/weakness/swelling in his extremities. Upon arrival to [facility], patient underwent evaluation in the emergency department. Vital signs upon arrival show blood pressure 111/85, heart rate 90, respiratory rate 20, temp 97.5 F, and SpO2 of 97% on room air. EKG completed showing atrial fibrillation with a controlled ventricular rate of 88 bpm. Chest x-ray completed showing some strandy lower lung atelectasis but negative for acute cardiopulmonary process. Labs were completed and reviewed. CBC unremarkable. Coagulation profile normal findings. BMP showing high anion gap metabolic acidosis with chloride of 110, bicarb of 21, and anion gap of 6 with elevated BUN of 26. Blood glucose was 104. Magnesium 1.8. Liver profile unremarkable. Troponin was negative at less than 0.012. Patient was admitted under our services with consultation to cardiology. Review of systems: Pertinent positives and negatives as discussed in HPI, a complete review of systems was performed and all other systems are negative. Physical exam: Vital signs reviewed and stable. General: Nontoxic, no distress and appears stated age. Derm: Skin warm and dry, normal coloration for ethnicity. Head: Atraumatic, normocephalic and symmetric. Eyes: EOM's intact, no lid lag, and anicteric sclera Mouth: no lip lesions, mucus membranes moist Cardiovascular: Irregularly irregular, no murmur, positive posterior tibial pulses bilaterally, and cap refill < 2 seconds. Lungs: Respirations even, regular, and unlabored on room air. Lungs CTA bilaterally, no rhonchi, no rales, no wheezing, and no accessory muscle usage. Abdominal: soft, nontender to palpation, no guarding, no appreciable organomegaly Ext: ROM intact. No gross muscle atrophy, no edema, no contractures Neuro: Speech clear, face symmetrical and CN II-XII grossly intact with no noted focal neuro deficits Psych: Alert and oriented to person, place, time, and situation. Appropriate and pleasant affect. Assessment and Plan of Care: Atypical chest pain, rule out acute coronary event Newly diagnosed atrial fibrillation with controlled ventricular rate Hypertension Hyperlipidemia -Cardiology consulted, appreciate recommendations -Telemetry monitoring -Trend troponins -Cardiac diet, NPO at midnight -Continue daily medication regimen with aspirin 81 mg daily, amlodipine 5 mg daily, and lisinopril 20 mg daily. Patient started on atorvastatin 40 mg nightly pending lipid profile results. -Lipid profile with a.m. labs. -Echocardiogram -[id number] score is 2. Heart score is 5. -Patient would like to discuss with human resources team member alternative treatment to DOAC's. At this time we will start patient on low intensity heparin infusion for anticoagulation for new onset atrial fibrillation. -Order placed for D-dimer and TSH with free T4. BPH -Continue Flomax 0.4 mg nightly. Data and imaging reviewed: As stated above in HPI CODE STATUS: Full Code DVT prophylaxis: Heparin Anticipated discharge date: Pending clinical course Anticipated discharge place: Home Patient was seen independently by Nurse Practitioner. This document was prepared using [employer] dictation software. Please allow for errors in galvanizer while rare they do occur. Pedro Beck NP rendered care for this patient independently, reviewed the findings and plan as documented in the note above and agree with plan. I did not physically speak with or examine the patient on this date. Past Medical History Past Medical History: Atrial Fibrillation, Hyperlipidemia, Hypertension History of Any Multi-Drug Resistant Organisms: None Reported Past Surgical History: Joint Replacement Additional Past Surgical History / Comment(s): lt knee Past Anesthesia/Blood Transfusion Reactions: No Reported Reaction Past Psychological History: No Psychological Hx Reported Smoking Status: Never smoker Past Alcohol Use History: Occasional Past Drug Use History: None Reported - Past Family History Father Family Medical History: Hypertension Medications and Allergies Home Medications Medication Instructions Recorded Confirmed Type Aspirin EC [Ecotrin Low Dose] 81 mg PO DAILY 10/25/20 01/11/24 History Tamsulosin HCl [Flomax] 0.4 mg PO DAILY 10/25/20 01/11/24 History allopurinoL [Zyloprim] 100 mg PO DAILY 10/25/20 01/11/24 History Chlorthalidone [Hygroton] 25 mg PO DAILY 01/11/24 01/11/24 History amLODIPine BESYLATE/BENAZEPRIL 1 cap PO DAILY 01/11/24 01/11/24 History [Lotrel 5-20 mg Capsule] Allergies Allergy/AdvReac Type Severity Reaction Status Date / Time No Known Allergies Allergy Verified 01/11/24 14:34 Physical Exam Vitals: Vital Signs Temp Pulse Resp BP Pulse Ox 01/11/24 15:00 76 18 124/90 98 01/11/24 14:00 76 18 124/92 98 01/11/24 12:37 97.5 F L 90 20 111/85 97 Intake and Output 01/11/24 01/11/24 01/11/24 06:59 14:59 22:59 Other: Weight 113.398 kg Results CBC & Chem 7: 01/11/24 13:25 01/11/24 13:25 Labs: Abnormal Lab Results - Last 24 Hours (Table) 01/11/24 Range/Units 13:25 Chloride 110 H (98-107) mmol/L Carbon Dioxide 21 L (22-30) mmol/L BUN 26 H (9-20) mg/dL Glucose 104 H (74-99) mg/dL
[2024-01-11] MEDS: HEPARIN SODIUM 1,000 UN/ML (10ML VL) IV ONE (16:59)
[2024-01-11] MEDS: HEPARIN SOD,PORK IN 0.45% NACL 25,000 UNIT in 0.45% NACL 1 250ML.BAG IV SCH (17:00)
[2024-01-11] MEDS: ATORVASTATIN 40 MG TAB PO SCH (22:34)
[2024-01-12] MEDS: HEPARIN SODIUM 1,000 UN/ML (10ML VL) IV PRN (00:41)
[2024-01-12 06:00] LABS: Partial Thromboplastin Time 64.6 sec (22.0-30.0); Prothrombin Time 10.8 sec (10.0-12.5)
[2024-01-12] MEDS ORDERED: HEPARIN SODIUM,PORCINE (1 ML) 2,500 UNIT in SODIUM CHLORIDE 0.9% 250 ML IRRIGATION PRN (07:00)
[2024-01-12] MEDS ORDERED: HEPARIN SODIUM,PORCINE 10,000 UNIT in SODIUM CHLORIDE 0.9% 1,000 ML IRRIGATION PRN (07:00)
[2024-01-12] MEDS ORDERED: NITROGLYCERIN SL TABS 0.4 MG TAB SUBLINGUAL PRN (08:11)
[2024-01-12] MEDS ORDERED: ALPRAZolam 0.5 MG TAB PO PRN (08:11)
[2024-01-12] MEDS ORDERED: ALPRAZolam 0.25 MG TAB PO PRN (08:11)
[2024-01-12 08:46] LABS: Basophils # (A) 0.04 X 10*3/uL (0.00-0.10); Basophils % (A) 0.6 %; Eosinophils % (A) 3.2 %; HCT 41.1 % (39.6-50.0); HGB 13.6 g/dL (13.0-17.0); Lymphocytes % (A) 32.3 %; MCHC 33.1 g/dL (32.0-37.0); MCV 87.6 FL (80.0-97.0); Mean Platelet Volume 10.7 FL (9.5-12.2); Monocytes # (A) 0.42 X 10*3/uL (0.20-1.00); Monocytes % (A) 6.8 %; NRBC Per 100 WBC 0 X 10*3/uL (0.00-0.01); Neutrophils % (A) 56.6 %; Platelet Count 222 X 10*3/uL (140-440); RBC 4.69 X 10*6/uL (4.40-5.60); RDW 12.8 % (11.5-14.5); WBC 6.19 X 10*3/uL (4.50-10.00)
[2024-01-12] MEDS: allopurinoL 100 MG TAB PO SCH (08:51)
[2024-01-12] MEDS: SODIUM CHLORIDE 0.9% 1,000 ML in EMPTY BAG 1 BAG IV SCH (08:51)
[2024-01-12] MEDS: ASPIRIN 325 MG TAB PO STA (08:51)
[2024-01-12] MEDS: ATORVASTATIN 80 MG TAB PO STA (08:51)
[2024-01-12] MEDS: lisinopriL 20 MG TAB PO SCH (08:51)
[2024-01-12] MEDS: amLODIPine 5 MG TAB PO SCH (08:51)
--- NOTE | 2024-01-12 09:27 | CA ---
Transthoracic Echo Report Name: Tato Cruz Age: 68 Gender: M : 1955 Exam Date: 01/11/2024 16:01 Exam Location: [facility] Ht (in): 74 Wt (lb): 250 Ordering Physician: Melyssa Morris DO Attending/Referring Phys: [id number], Alexandra Sap Technical Developer Iraida Keller, BHAVANI Procedure CPT: Indications: chest pain, new onset afib Cardiac Hx: Technical Quality: Fair Contrast 1: Total Dose (mL): Contrast 2: Total Dose (mL): MEASUREMENTS (Male / Female) Normal Values 2D ECHO LV Diastolic Diameter PLAX 4.7 cm 4.2 - 5.9 / 3.9 - 5.3 cm LV Systolic Diameter PLAX 3.3 cm IVS Diastolic Thickness 1.2 cm 0.6 - 1.0 / 0.6 - 0.9 cm LVPW Diastolic Thickness 1.5 cm 0.6 - 1.0 / 0.6 - 0.9 cm LV Relative Wall Thickness 0.6 RV Internal Dim ED PLAX 4.0 cm LA Systolic Diameter LX 4.3 cm 3.0 - 4.0 / 2.7 - 3.8 cm LV Diastolic Volume MOD BP 134.3 cm??? 67 - 155 / 56 - 104 cm??? LV Systolic Volume MOD BP 75.2 cm??? 22 - 58 / 19 - 49 cm??? LV Ejection Fraction MOD BP 44.0 % >= 55 % LV Cardiac Index MOD BP 2138.6 cm???/min???m??? LV Diastolic Volume MOD 4C 146.5 cm??? LV Systolic Volume MOD 4C 71.2 cm??? LV Ejection Fraction MOD 4C 51.4 % LV Cardiac Index MOD 4C 2720.7 cm???/min???m??? LV Diastolic Length 4C 8.8 cm LV Systolic Length 4C 7.7 cm LV Diastolic Volume MOD 2C 123.9 cm??? LV Systolic Volume MOD 2C 74.7 cm??? LV Ejection Fraction MOD 2C 39.7 % LV Cardiac Index MOD 2C 1776.5 cm???/min???m??? LV Diastolic Length 2C 8.9 cm LV Systolic Length 2C 8.3 cm LA Volume 119.5 cm??? 18 - 58 / 22 - 52 cm??? LA Volume Index 48.5 cm???/m??? 16 - 28 cm???/m??? M-MODE Aortic Root Diameter MM 3.4 cm AV Cusp Separation MM 2.3 cm DOPPLER AV Peak Velocity 114.6 cm/s AV Peak Gradient 5.2 mmHg MV Area PHT 3.1 cm??? MV Deceleration Time 243.8 ms TR Peak Velocity 217.8 cm/s TR Peak Gradient 19.0 mmHg Right Ventricular Systolic Press 23.3 mmHg FINDINGS Left Ventricle Left ventricular ejection fraction is estimated at 50-55 %. Left ventricular cavity size normal. Mildly increased left ventricular wall thickness. Left ventricular systolic function borderline normal Right Ventricle Mildly right ventricular dilatation. Right ventricular systolic pressure within normal limits. Right Atrium Moderate right atrial dilatation. No right atrial thrombus or mass seen. Left Atrium Mildly increased left atrial diameter. Severely increased left atrial volume. Moderately increased left atrial area. No left atrial thrombus or mass present. Mitral Valve Structurally normal mitral valve.mild mitral regurgitation. Aortic Valve Trileaflet aortic valve. No aortic valve stenosis or regurgitation. Tricuspid Valve Structurally normal tricuspid valve. Mild tricuspid regurgitation. Pulmonic Valve Pulmonic valve not well visualized. No pulmonic regurgitation. Pericardium No pericardial or pleural effusion. Aorta Normal size aortic root. Mild aortic dilatation at the level of the aortic arch. Mildly dilated proximal ascending aorta 40 mm CONCLUSIONS 1. Left ventricular systolic function borderline normal 2. Mild mitral and tricuspid regurgitation 3. Mildly dilated aortic root Previewed by: Dr. Kev Sher MD (Electronically Signed) Final Date: 12 January 2024 09:26
[2024-01-12] MEDS: SODIUM CHLORIDE 0.9% 1,000 ML IV ONE (09:40)
[2024-01-12] MEDS: LIDOCAINE 1% INJ 10MG/ML (20 ML MDV) SQ ONE (09:46)
[2024-01-12] MEDS: fentaNYL (PF) 50 MCG/ML 2 ML AMP IVP ONE (09:46)
[2024-01-12] MEDS: MIDAZOLAM 2 MG/2 ML VIAL IVP ONE (09:48)
[2024-01-12] MEDS: VERAPAMIL SYRINGE (5 MG/10 ML) INTRAARTER ONE (09:48)
[2024-01-12] MEDS: HEPARIN SODIUM,PORCINE 10,000 UNIT in SODIUM CHLORIDE 0.9% 1,000 ML IRRIGATION ONE (09:49)
[2024-01-12] MEDS: HEPARIN SODIUM,PORCINE (1 ML) 2,500 UNIT in SODIUM CHLORIDE 0.9% 250 ML IRRIGATION ONE (09:49)
[2024-01-12] MEDS: HEPARIN SODIUM 1,000 UN/ML (10ML VL) IVP ONE (09:53)
[2024-01-12] MEDS: IOPAMIDOL-370 100ML BTL INJ ONE (09:57)
[2024-01-12] MEDS ORDERED: RX INFO: IV CONTRAST WAS GIVEN 1 EACH MISC MISCELLANE PRN (10:18)
--- NOTE | 2024-01-12 10:19 | P.CRDCN ---
History of Present Illness Consult date: 01/12/24 Consult reason: chest pain, atrial fibrillation History of present illness: This is a 68-year-old male with past medical history of recent diagnosis of atrial fibrillation by PCP, hypertension, hyperlipidemia and patient took himself off pravastatin on November 16. Patient states that for about 5 weeks he has been having shortness of breath. He saw his PCP last and was diagnosed with atrial fibrillation and was set up with an appointment with with [facility] yesterday. He states he was on his way there and he developed worsening chest pressure. The pressure had been going on for about a month but was the worst. He states it was sudden onset after he ate some toast for breakfast. He does not feel that the chest pain is related to activity. He does state that he is not as active as he used to be and does have some dyspnea on exertion. No abdominal pain. No edema. He states he has felt some palpitations today for the first time. He denies dizziness. He has no history of COPD or lung disease, no stroke or seizure. He denies any lower extremity edema. He is a non-smoker. He drinks 1 cup of coffee per day. He drinks 4-6 alcoholic beverages per week. Discussed recommendations for cardiac catheterization and patient is willing to move forward with this today. Blood pressure 123/85, heart rate 67, pulse ox 98% on room air. -EKG: Atrial fibrillation 88 bpm -Chest x-ray: Strandy atelectasis -Echocardiogram reveals EF of 50 to 55%, mild mitral and tricuspid regurgitation, mildly dilated aortic root. -Laboratory studies: CBC within normal limits. D-dimer 0.87. Sodium 137, potassium 4.1, BUN 26 and creatinine 1.15. Troponin negative x 3. TSH 0.888. Liver function test are normal. Magnesium 1.8. -Home cardiac medications: Amlodipine/benazepril 5-20 mg 1 daily, aspirin 81 mg daily, chlorthalidone 25 mg daily. Review Of Systems: At the time of my exam: CONSTITUTIONAL: Denies fever or chills. HEENT: Denies blurred vision, vision changes, or eye pain. Denies hemoptysis CARDIOVASCULAR: Denies chest pain. Denies orthopnea. Denies PND. Denies palpitations RESPIRATORY: Denies shortness of breath. GASTROINTESTINAL: Denies abdominal pain. Denies nausea or vomiting. HEMATOLOGIC: Denies bleeding disorders. GENITOURINARY: Denies any blood in urine. SKIN: Denies puritis. Denies rash. Physical examination: Gen: This is a 68-year-old male in no acute distress VS: reviewed HEENT: Head is atraumatic, normocephalic. Pupils equal, round. Sclerae is anicteric. NECK: Supple. No JVD. LUNGS: Clear to auscultation. No wheezes or rhonchi. No intercostal retractions. HEART: Irregular rate and rhythm. No murmur. ABDOMEN: Soft No tenderness. EXTREMITIES: No pedal edema. No calf tenderness. NEUROLOGICAL: Patient is awake, alert and oriented x3. Assessment: Atypical chest pain, acute coronary ruled out with negative troponins Dyspnea on exertion, rule out coronary artery disease Paroxysmal atrial fibrillation of unknown onset Hypertension Hyperlipidemia alcohol intake of 4 to 6/week Plan: Resume patient's home cardiac medications Schedule patient for [facility] today with Dr. Sher Obtain 2-D echocardiogram and Doppler study to assess cardiac structure and function Alcohol abstinence recommended Further recommendations to follow based upon clinical course Thank you kindly for this consultation. Nurse practitioner note has been reviewed, I agree with documented findings and plan of care. Patient was seen and examined. Past Medical History Past Medical History: Atrial Fibrillation, Hyperlipidemia, Hypertension History of Any Multi-Drug Resistant Organisms: None Reported Past Surgical History: Bladder Surgery, Joint Replacement Additional Past Surgical History / Comment(s): lt knee, bladder surgery 2011, Past Anesthesia/Blood Transfusion Reactions: No Reported Reaction Past Psychological History: No Psychological Hx Reported Smoking Status: Never smoker Past Alcohol Use History: Occasional Past Drug Use History: None Reported - Past Family History Father Family Medical History: Hypertension Medications and Allergies Home Medications Medication Instructions Recorded Confirmed Type Aspirin EC [Ecotrin Low Dose] 81 mg PO DAILY 10/25/20 01/11/24 History Tamsulosin HCl [Flomax] 0.4 mg PO DAILY 10/25/20 01/11/24 History allopurinoL [Zyloprim] 100 mg PO DAILY 10/25/20 01/11/24 History Chlorthalidone [Hygroton] 25 mg PO DAILY 01/11/24 01/11/24 History amLODIPine BESYLATE/BENAZEPRIL 1 cap PO DAILY 11/25/24 11/25/24 History [Lotrel 5-20 mg Capsule] Allergies Allergy/AdvReac Type Severity Reaction Status Date / Time No Known Allergies Allergy Verified 01/11/24 14:34 Physical Exam Vitals: Vital Signs Temp Pulse Pulse Resp BP BP Pulse Ox 01/12/24 02:00 98.0 F 72 17 126/87 94 L 01/11/24 21:03 98.1 F 81 17 119/80 96 01/11/24 20:00 81 01/11/24 19:59 78 16 112/84 96 01/11/24 18:00 88 16 131/100 96 01/11/24 17:00 84 16 119/97 97 01/11/24 16:00 81 16 123/99 95 01/11/24 15:00 76 18 124/90 98 01/11/24 14:00 76 18 124/92 98 01/11/24 12:37 97.5 F L 90 20 111/85 97 Intake and Output 01/11/24 01/12/24 01/12/24 22:59 06:59 14:59 Intake Total 150.648 Balance 150.648 Intake: Intake, IV Titration 150.648 Amount Heparin Sod,Pork in 0.45% 150.648 NaCl 25,000 unit In 0.45 % NaCl 1 250ml.bag @ 8. 818 UNITS/KG/HR 9.999 mls /hr IV .Q24H [facility] Rx#: [id number] Other: # Voids 2 Weight 113.398 kg Results 01/12/24 05:28 01/11/24 13:25 Cardiac Enzymes 01/11/24 01/11/24 01/11/24 Range/Units 13:25 13:25 16:39 AST 17 (17-59) U/L Troponin I <0.012 0.013 (0.000-0.034) ng/mL 01/11/24 Range/Units 19:42 AST (17-59) U/L Troponin I 0.022 (0.000-0.034) ng/mL Coagulation 01/11/24 01/11/24 01/12/24 Range/Units 13:25 23:14 05:28 PT 10.7 10.8 (10.0-12.5) sec APTT 24.1 34.7 H 64.6 H (22.0-30.0) sec CBC 01/11/24 Range/Units 13:25 WBC 7.0 (3.8-10.6) k/uL RBC 4.80 (4.30-5.90) m/uL Hgb 14.5 (13.0-17.5) gm/dL Hct 43.5 (39.0-53.0) % Plt Count 229 (150-450) k/uL Comprehensive Metabolic Panel 01/11/24 Range/Units 13:25 Sodium 137 (137-145) mmol/L Potassium 4.1 (3.5-5.1) mmol/L Chloride 110 H (98-107) mmol/L Carbon Dioxide 21 L (22-30) mmol/L BUN 26 H (9-20) mg/dL Creatinine 1.15 (0.66-1.25) mg/dL Glucose 104 H (74-99) mg/dL Calcium 9.8 (8.4-10.2) mg/dL AST 17 (17-59) U/L ALT 11 (4-49) U/L Alkaline Phosphatase 49 (38-126) U/L Total Protein 6.4 (6.3-8.2) g/dL Albumin 3.8 (3.5-5.0) g/dL Current Medications Generic Name Dose Route Start Last Admin Trade Name Freq PRN Reason Stop Dose Admin Allopurinol 100 mg 01/12/24 09:00 Allopurinol 100 Mg Tab PO DAILY [facility] Amlodipine Besylate 5 mg 01/12/24 09:00 Amlodipine 5 Mg Tab PO DAILY [facility] Aspirin 81 mg 01/12/24 09:00 Aspirin 81 Mg PO DAILY [facility] Atorvastatin Calcium 40 mg 01/11/24 21:00 01/11/24 22:34 Atorvastatin 40 Mg Tab PO Not Given HS [facility] Chlorthalidone 25 mg 01/12/24 09:00 Chlorthalidone 25 Mg Tab PO DAILY [facility] Heparin Sodium (Porcine) 0 unit 01/11/24 16:31 01/12/24 00:41 Heparin Sodium 1,000 Un/Ml (10ml Vl) IV 4,000 unit PER PROTOCOL PRN Administration Low PTT Protocol Heparin Sodium/Sodium Chloride 250 mls @ 9.999 mls/hr 01/11/24 16:45 01/12/24 06:10 25,000 unit/ Sodium Chloride IV 11.818 units/kg/hr .Q24H [facility] 13.401 mls/hr Titration Protocol 8.818 UNITS/KG/HR Lisinopril 20 mg 01/12/24 09:00 Lisinopril 20 Mg Tab PO DAILY [facility] Naloxone HCl 0.2 mg 01/11/24 15:07 Naloxone 0.4 Mg/Ml 1 Ml Vial IV Q2M PRN Opioid Reversal Tamsulosin HCl 0.4 mg 01/12/24 09:00 Tamsulosin 0.4 Mg Cap.Er.24h PO DAILY [facility] Intake and Output 01/11/24 01/12/24 01/12/24 22:59 06:59 14:59 Intake Total 150.648 Balance 150.648 Intake: Intake, IV Titration 150.648 Amount Heparin Sod,Pork in 0.45% 150.648 NaCl 25,000 unit In 0.45 % NaCl 1 250ml.bag @ 8. 818 UNITS/KG/HR 9.999 mls /hr IV .Q24H [facility] Rx#: [id number] Other: # Voids 2 Weight 113.398 kg 01/11/24 13:25 01/11/24 13:25
--- NOTE | 2024-01-12 10:25 | P.CARDCATH ---
Date of Procedure: 01/12/24 Description of Procedure: Cardiac Catheterization: The patient is a 68-year-old male with known history of hypertension, hyperlipidemia, recently diagnosed atrial fibrillation who presented with symptoms of progressive dyspnea, fatigue and chest discomfort. He had nonspecific ST-T wave changes. Recommendations were made regarding cardiac catheterization, the risks and the complications were discussed with the patient who is in full understanding and agreement. Procedure Description: Patient was brought to [facility] in fasting semi-sedated state after receiving Fentanyl and Benadryl achieiving moderate conscious sedated state. Using Xylocaine Anesthesia and modified Seldinger technique, a 6-Malaysian sheath was introduced in the right radial artery . Subsequently, selective coronary angiography was performed using a 5-Malaysian 3.5 bend Vera catheter. Multiple views of the coronary artery including hemiaxial views were obtained. The right Vera catheter was used to cross the aortic valve and LVEDP was calculated. Following that, catheter and sheath were removed. Hemostasis was obtained with deployment of vascular band . There was no immediate complication. Patient was returned to room in stable condition. Of note, the patient received a total of 5000 units of intravenous heparin as well as intra-arterial verapamil. Findings: Fluoroscopy: Calcifications of the LAD was noted Left main: This is a large size vessel, bifurcating into LAD and left circumflex, left main has no obstructive disease. LAD: This is a large size vessel, reaching to the apex with a wraparound apex segment giving rise to small to moderately sized diagonal branch. The LAD after the takeoff of the diagonal branch has 20 to 30% plaque. The diagonal branch has a 50 to 60% plaque proximally. The rest of the vessel has no high-grade stenosis. Left circumflex: This is a nondominant vessel giving rise to a moderately sized obtuse marginal branch that has diffuse intimal disease in the proximal circumflex and the obtuse marginal branch with a area of stenosis up to 50 to 60%, the rest of the vessel has no high-grade stenosis RCA: This is a large size vessel, dominant, bifurcating into PDA and PLV. The mid RCA has a 20 to 30% eccentric plaque in the distal RCA prior to the bifurcation has intimal disease of 20%. Left Ventriculogram: Not performed Hemodynamics: There was no gradient across the aortic valve, LVEDP was 12-16 mmHg Conclusion: 1. Coronary calcifications 2. Mild to moderate triple-vessel disease 3. Right dominance 4. Normal LVEDP Recommendations: At this time I have recommended to optimize his medical therapy, I do not see any significant lesion to proceed with PCI. He will start anticoagulation and be evaluated for restoring sinus mechanism and depending on his progress further recommendations will be made. The findings and the recommendations were discussed with the patient and the family and they were in full understanding and agreement. Duration of sedation is 15 minutes.
[2024-01-12] MEDS: SODIUM CHLORIDE 0.9% 1,000 ML IV SCH (11:24)
[2024-01-12] MEDS: CHLORTHALIDONE 25 MG TAB PO SCH (11:27)
[2024-01-12] MEDS: TAMSULOSIN 0.4 MG CAP.ER.24H PO SCH (11:27)
[2024-01-12 12:43] LABS: African American GFR (CKD) 78 (>60 ml/min/1.73 sqM); Anion Gap 4 mmol/L; Blood Urea Nitrogen 21 mg/dL (9-20); Calcium 9.8 mg/dL (8.4-10.2); Carbon Dioxide 25 mmol/L (22-30); Chloride 108 mmol/L (98-107); Glucose 99 mg/dL (74-99); Non-African American GFR(CKD) 68 (>60 ml/min/1.73 sqM); Potassium 4.3 mmol/L (3.5-5.1); Sodium 137 mmol/L (137-145)
[2024-01-12 12:43] LABS: Magnesium 1.8 mg/dL (1.5-2.4)
[2024-01-12 12:46] LABS: BUN/Creat Ratio 16.75 Ratio (12.00-20.00); Blood Urea Nitrogen 20.1 mg/dL (9.0-27.0); Calcium 9.5 mg/dL (8.7-10.3); Carbon Dioxide 21.9 mmol/L (21.6-31.8); Chloride 106 mmol/L (96-109); Glucose 101 mg/dL (70-110); Potassium 4.2 mmol/L (3.5-5.5); Sodium 141 mmol/L (135-145)
--- NOTE | 2024-01-12 13:16 | P.PN ---
Subjective Progress Note Date: 01/12/24 Hospital course Patient is a very pleasant 68-year-old male with a past medical history of BPH, hypertension, hyperlipidemia, and recently diagnosed atrial fibrillation. He presented to the emergency department with a chief complaint of chest pain and palpitations. Patient reports over the past month he has been noticing an increased shortness of breath worse with exertion and made an appointment with his PCP last week and was informed that he had a new diagnosis of atrial fibrillation and was scheduled to be evaluated by web editor this morning. Patient reports this morning after eating some toast for breakfast and just sitting in the chair watching TV and resting he suddenly developed pain to his left anterior chest radiating to midsternal chest and up into the left side of his neck and lower jaw. Patient reports this pain was accompanied by feelings of palpitations like his heart was racing described this pain as a strong pressure. He denies experiencing pain like this in the past and reports initially he was trying to hold out until he went to the web editor office this afternoon but states when the pain did not go away he became concerned and knew he should go to the hospital for evaluation. Patient reports this pain lasted approximately an hour and a half prior to resolving without intervention. Patient denies having any headache, lightheadedness, dizziness, shortness of breath at rest, cough or congestion, nausea, vomiting, or experiencing any numbness/tingling/weakness/swelling in his extremities. Upon arrival to our facility, patient underwent evaluation in the emergency department. Vital signs upon arrival show blood pressure 111/85, heart rate 90, respiratory rate 20, temp 97.5 F, and SpO2 of 97% on room air. EKG completed showing atrial fibrillation with a controlled ventricular rate of 88 bpm. Chest x-ray completed showing some strandy lower lung atelectasis but negative for acute cardiopulmonary process. Labs were completed and reviewed. CBC unremarkable. Coagulation profile normal findings. BMP showing high anion gap metabolic acidosis with chloride of 110, bicarb of 21, and anion gap of 6 with elevated BUN of 26. Blood glucose was 104. Magnesium 1.8. Liver profile unremarkable. Troponin was negative at less than 0.012. Patient was admitted under our services with consultation to cardiology. Troponins were trended resulting at less than 0.012, 0.013, and 0.022. D-dimer was elevated at 0.87. Patient was evaluated by web editor this morning taking patient for cardiac cath. Patient has been anticoagulated with heparin infusion with therapeutic PTT of 64.[address] order for VQ scan once patient returns from cardiac catheterization, as patient cannot undergo cardiac cath and CTA with contrast in same 24-hour period. Physical exam: Patient seen and fully evaluated at bedside this morning. He was preparing to be taken down for cardiac cath. He reports currently his chest pain is resolved and denies having any other complaints at this time. Patient's also at bedside and updated on plan. Vital signs reviewed and stable. General: Nontoxic, no distress and appears stated age. Derm: Skin warm and dry, normal coloration for ethnicity. Head: Atraumatic, normocephalic and symmetric. Eyes: EOM's intact, no lid lag, and anicteric sclera Mouth: no lip lesions, mucus membranes moist Cardiovascular: Irregularly irregular, no murmur, positive posterior tibial pulses bilaterally, and cap refill < 2 seconds. Lungs: Respirations even, regular, and unlabored on room air. Lungs CTA bilaterally, no rhonchi, no rales, no wheezing, and no accessory muscle usage. Abdominal: soft, nontender to palpation, no guarding, no appreciable organomegaly Ext: ROM intact. No gross muscle atrophy, no edema, no contractures Neuro: Speech clear, face symmetrical and CN II-XII grossly intact with no noted focal neuro deficits Psych: Alert and oriented to person, place, time, and situation. Appropriate and pleasant affect. Assessment and Plan of Care: Atypical chest pain, rule out acute coronary event Newly diagnosed atrial fibrillation with controlled ventricular rate Hypertension Hyperlipidemia -Cardiology following, taking patient for cardiac cath later today. -Telemetry monitoring -Trend troponins -Cardiac diet, NPO at midnight -Continue daily medication regimen with aspirin 81 mg daily, amlodipine 5 mg daily, and lisinopril 20 mg daily. Patient started on atorvastatin 40 mg nightly pending lipid profile results. -Lipid profile with a.m. labs. -Echocardiogram -[id number] score is 2. Heart score is 5. -Patient would like to discuss with web editor alternative treatment to DOAC's. At this time we will start patient on low intensity heparin infusion for anticoagulation for new onset atrial fibrillation. -Order placed for D-dimer and TSH with free T4. BPH -Continue Flomax 0.4 mg nightly. Data and imaging reviewed: Vital signs reviewed. Blood pressure 123/85, heart rate 67, respiratory rate 16, temp 98.4 F, and SpO2 of 98% on room air. Morning labs completed and reviewed. CBC unremarkable. Coagulation profile showing therapeutic PTT of 64.6. BMP showing slightly elevated anion gap of 13.10 otherwise normal findings. Blood glucose 101. Magnesium 1.8. Troponins trended resulting at less than 0.012, 0.013, and 0.022. D-dimer elevated at 0.87. CODE STATUS: Full Code DVT prophylaxis: Heparin Anticipated discharge date: Pending clinical course Anticipated discharge place: Home Patient was seen independently by Nurse Practitioner. This document was prepared using [employer] dictation software. Please allow for errors in breaker unit assembler while rare they do occur. Pedro Beck NP rendered care for this patient independently, reviewed the findings and plan as documented in the note above and agree with plan. I did not physically speak with or examine the patient on this date. Objective - Vital Signs Vital signs: Vital Signs Temp 98.4 F 01/12/24 08:00 Pulse 67 01/12/24 08:00 Resp 16 01/12/24 08:00 BP 123/85 01/12/24 08:00 Pulse Ox 98 01/12/24 08:00 FiO2 Intake & Output 01/11/24 01/12/24 01/12/24 18:59 06:59 18:59 Intake Total 150.648 Balance 150.648 Weight 113.398 kg 113.398 kg Intake: Intake, IV Titration 150.648 Amount Heparin Sod,Pork in 0.45% 150.648 NaCl 25,000 unit In 0.45 % NaCl 1 250ml.bag @ 8. 818 UNITS/KG/HR 9.999 mls /hr IV .Q24H [facility] Rx#: [id number] Other: # Voids 2 - Labs CBC & Chem 7: 01/12/24 05:28 01/12/24 10:36 Labs: Abnormal Lab Results - Last 24 Hours (Table) 01/11/24 01/11/24 01/11/24 Range/Units 13:25 19:42 23:14 APTT 34.7 H (22.0-30.0) sec D-Dimer 0.87 H (<0.60) mg/L FEU Chloride 110 H (98-107) mmol/L Carbon Dioxide 21 L (22-30) mmol/L BUN 26 H (9-20) mg/dL Glucose 104 H (74-99) mg/dL 01/12/24 Range/Units 05:28 APTT 64.6 H (22.0-30.0) sec D-Dimer (<0.60) mg/L FEU Chloride (98-107) mmol/L Carbon Dioxide (22-30) mmol/L BUN (9-20) mg/dL Glucose (74-99) mg/dL
--- NOTE | 2024-01-12 16:24 | NM ---
EXAMINATION TYPE: NM pul vent and perfuse DATE OF EXAM: 01/12/2024 CLINICAL INDICATION: Male, 68 years old with history of elevated d-dimer, a-fib, CP and palpiations; COMPARISON: Chest radiograph 01/11/2024 TECHNIQUE: Utilizing inhalation of 68.8 mCi Tc 99m DTPA aerosol and intravenous injection of 4.7 mCi of Tc 99m MAA, ventilation and perfusion images are acquired post injection in multiple projections. FINDINGS: Normal radiotracer distribution is noted in the lungs. There is no evidence of mismatched defects. IMPRESSION: No evidence for pulmonary embolus. [facility], , 01/12/2024 4:21 PM
[2024-01-12 21:01] VITALS: RESP 16
[2024-01-13 08:04] VITALS: BP 117/76; PULSE 77; TEMP 97.9
[2024-01-13] MEDS: APIXABAN 5 MG TAB PO SCH (08:40)
[2024-01-13] MEDS: ASPIRIN 81 MG PO SCH (08:40)
--- NOTE | 2024-01-13 09:16 | P.DS ---
Providers Date of admission: 01/11/24 15:07 Expected date of discharge: 01/13/24 Attending physician: Ellis Forrest Consults: 01/11/24 15:07 Consult Physician Urgent Consulting Provider: [facility] Reason/Comments: acute chest pain Do you want consulting provider notified?: Yes Primary care physician: Arvin Sutton [facility] Course: Discharge Diagnosis: Atypical chest pain, acute coronary event ruled out. Newly diagnosed atrial fibrillation with controlled ventricular rate. Patient being discharged home with Eliquis 5 mg twice daily and to follow-up outpatient with share[employer] admin for further evaluation and possible discussion/reevaluation for cardioversion. Hypertension Hyperlipidemia BPH Continue Flomax 0.4 mg nightly. Hospital course Patient is a very pleasant 68-year-old male with a past medical history of BPH, hypertension, hyperlipidemia, and recently diagnosed atrial fibrillation. He presented to the emergency department with a chief complaint of chest pain and palpitations. Patient reports over the past month he has been noticing an increased shortness of breath worse with exertion and made an appointment with his PCP last week and was informed that he had a new diagnosis of atrial fibrillation and was scheduled to be evaluated by share[employer] admin this morning. Patient reports this morning after eating some toast for breakfast and just sitting in the chair watching TV and resting he suddenly developed pain to his left anterior chest radiating to midsternal chest and up into the left side of his neck and lower jaw. Patient reports this pain was accompanied by feelings of palpitations like his heart was racing described this pain as a strong pressure. He denies experiencing pain like this in the past and reports initially he was trying to hold out until he went to the [employer] admin office this afternoon but states when the pain did not go away he became concerned and knew he should go to the hospital for evaluation. Patient reports this pain lasted approximately an hour and a half prior to resolving without interventionUpon arrival to our facility, patient underwent evaluation in the emergency department. Vital signs upon arrival show blood pressure 111/85, heart rate 90, respiratory rate 20, temp 97.5 F, and SpO2 of 97% on room air. EKG completed showing atrial fibrillation with a controlled ventricular rate of 88 bpm. Chest x-ray completed showing some strandy lower lung atelectasis but negative for acute cardiopulmonary process. Labs were completed and reviewed. CBC unremarkable. Coagulation profile normal findings. BMP showing high anion gap metabolic acidosis with chloride of 110, bicarb of 21, and anion gap of 6 with elevated BUN of 26. Blood glucose was 104. Magnesium 1.8. Liver profile unremarkable. Troponin was negative at less than 0.012. Patient was admitted under our services with consultation to cardiology. [id number] score is 2. Heart score is 5. Troponins were trended resulting at less than 0.012, 0.013, and 0.022. D-dimer was elevated at 0.87. Patient was evaluated by sharepoint admin and taken for cardiac cath. Scan showed no evidence for pulmonary emboli. Echocardiogram showing a preserved EF of 50 to 55% with mild mitral and tricuspid regurgitation and mildly dilated aortic root.Cardiac catheterization revealing coronary calcifications with mild to moderate triple-vessel disease and normal LVEDP. Diesel Dinkey Operator recommending optimizing medical management and starting patient on anticoagulation with Eliquis and for outpatient evaluation for restoring sinus mechanism. Discussed with sharepoint admin, Dr. Sher clearing patient from cardiac perspective for discharge. Patient currently free from any chest pain or any other complaints at this time. He is medically optimized with stable vital signs blood pressure 117/76, heart rate 77, respiratory rate 16, temp 97.9 F, and SpO2 of 96% on room air. Patient medically stable for discharge at this time and to follow-up outpatient with PCP in 1 to 2 days and with share[employer] admin in 1 week. Patient provided with prescription for Eliquis 5 mg twice daily and atorvastatin 40 mg nightly at discharge. Discharge instructions reviewed with patient and patient's at bedside. Physical exam: Vital signs reviewed and stable. General: Nontoxic, no distress and appears stated age. Derm: Skin warm and dry, normal coloration for ethnicity. Head: Atraumatic, normocephalic and symmetric. Eyes: EOM's intact, no lid lag, and anicteric sclera Mouth: no lip lesions, mucus membranes moist Cardiovascular: Irregularly irregular, no murmur, positive posterior tibial pulses bilaterally, and cap refill < 2 seconds. Lungs: Respirations even, regular, and unlabored on room air. Lungs CTA bilaterally, no rhonchi, no rales, no wheezing, and no accessory muscle usage. Abdominal: soft, nontender to palpation, no guarding, no appreciable organomegaly Ext: ROM intact. No gross muscle atrophy, no edema, no contractures Neuro: Speech clear, face symmetrical and CN II-XII grossly intact with no noted focal neuro deficits Psych: Alert and oriented to person, place, time, and situation. Appropriate and pleasant affect. A total of 35 minutes of time were spent preparing this complex discharge summary. Pt was discharged on 01/13/2024 at 9:06 AM. Patient was seen independently by Nurse Practitioner. This document was prepared using [employer] dictation software. Please allow for errors in supervisor air conditioning installer while rare they do occur. Pedro Beck NP rendered care for this patient independently, reviewed the findings and plan as documented in the note above. I did not physically speak with or examine the patient on this date. Patient Condition at Discharge: Stable Plan - Discharge Summary Discharge Rx Participant: No New Discharge Prescriptions: New Apixaban [Eliquis] 5 mg PO BID 30 Days #60 tab Continue allopurinoL [Zyloprim] 100 mg PO DAILY Tamsulosin HCl [Flomax] 0.4 mg PO DAILY amLODIPine BESYLATE/BENAZEPRIL [Lotrel 5-20 mg Capsule] 1 cap PO DAILY Chlorthalidone [Hygroton] 25 mg PO DAILY Aspirin EC [Ecotrin Low Dose] 81 mg PO DAILY Discharge Medication List Aspirin EC [Ecotrin Low Dose] 81 mg PO DAILY 10/25/20 [History] Tamsulosin HCl [Flomax] 0.4 mg PO DAILY 10/25/20 [History] allopurinoL [Zyloprim] 100 mg PO DAILY 10/25/20 [History] Chlorthalidone [Hygroton] 25 mg PO DAILY 01/11/24 [History] amLODIPine BESYLATE/BENAZEPRIL [Lotrel 5-20 mg Capsule] 1 cap PO DAILY 01/11/24 [History] Apixaban [Eliquis] 5 mg PO BID 30 Days #60 tab 01/13/24 [Rx] Follow up Appointment(s)/Referral(s): Kev Sher MD [STAFF PHYSICIAN] - 1 Week Arvin Sutton DO [Primary Care Provider] - 1-2 days Patient Instructions/Handouts: A-fib (Atrial Fibrillation) (DC) Activity/Diet/Wound Care/Special Instructions: Activity: As tolerated. Take breaks as needed. Diet: Heart healthy and carb consistent diet. Avoid salts, or foods with hidden salts such as canned or boxed foods and frozen dinners. Extra salt makes your heart work harder and traps the fluid in your body for longer. Special Instructions: Take all of your medications as directed and remember to keep all of your doctor's appointments and follow-up as needed. You are also being discharged home on a blood thinner, Eliquis. This is very important to take daily as directed until otherwise advised by your sharepoint admin-Dr. Sher. Being that you are being placed on a blood thinner it is very important to watch for any signs of bleeding and notify your doctor immediately if you notice any bleeding. It is also important to remove any trip hazards such as rugs or loose extension cords from your home to prevent unnecessary falls and if you do experience a fall or head injury, it is extremely important to be evaluated by a medical provider immediately to ensure no internal bleeding. Thank you for allowing us to participate in your care, it was truly a pleasure having you for our patient!!! Discharge Disposition: HOME SELF-CARE
--- NOTE | 2024-01-13 10:53 | P.PN ---
Subjective Progress Note Date: 01/13/24 This is a 68-year-old male with past medical history of recent diagnosis of atrial fibrillation by PCP, hypertension, hyperlipidemia and patient took himself off pravastatin on November 16. Patient states that for about 5 weeks he has been having shortness of breath. He saw his PCP last and was di agnosed with atrial fibrillation and was set up with an appointment with with [facility] yesterday. He states he was on his way there and he developed worsening chest pressure. The pressure had been going on for about a month but was the worst. He states it was sudden onset after he ate some toast for breakfast. He does not feel that the chest pain is related to activity. He does state that he is not as active as he used to be and does have some dyspnea on exertion. No abdominal pain. No edema. He states he has felt some palpitations today for the first time. He denies dizziness. He has no history of COPD or lung disease, no stroke or seizure. He denies any lower extremity edema. He is a non-smoker. He drinks 1 cup of coffee per day. He drinks 4-6 alcoholic beverages per week. Discussed recommendations for cardiac catheterization and patient is willing to move forward with this today. Blood pressure 123/85, heart rate 67, pulse ox 98% on room air. -EKG: Atrial fibrillation 88 bpm -Chest x-ray: Strandy atelectasis -Echocardiogram reveals EF of 50 to 55%, mild mitral and tricuspid regurgitation, mildly dilated aortic root. -Laboratory studies: CBC within normal limits. D-dimer 0.87. Sodium 137, potassium 4.1, BUN 26 and creatinine 1.15. Troponin negative x 3. TSH 0.888. Liver function test are normal. Magnesium 1.8. -Home cardiac medications: Amlodipine/benazepril 5-20 mg 1 daily, aspirin 81 mg daily, chlorthalidone 25 mg daily. 01/13/2024 Underwent cardiac catheterization yesterday which showed coronary calcifications, mild to moderate triple-vessel disease and normal LVEDP. He has been initiated on Eliquis 5 mg p.o. twice daily. He remains on low-dose aspirin. Right radial puncture site is clean dry and intact with no evidence of ecchymosis or hematoma. He remains in atrial fibrillation with controlled ventricular rate. Overall he is feeling well. Denies any chest discomfort. His breathing is stable. He has no orthopnea, PND or edema. He has had no dizziness or syncope. Physical examination: Gen: This is a 68-year-old male in no acute distress VS: reviewed HEENT: Head is atraumatic, normocephalic. Pupils equal, round. Sclerae is anicteric. NECK: Supple. No JVD. LUNGS: Clear to auscultation. No wheezes or rhonchi. No intercostal retractions. HEART: Irregular rate and rhythm. No murmur. ABDOMEN: Soft No tenderness. EXTREMITIES: No pedal edema. No calf tenderness. NEUROLOGICAL: Patient is awake, alert and oriented x3. Assessment: #1 atrial fibrillation, likely persistent #2 mild coronary artery disease #3 hypertension #4 hyperlipidemia #5 alcohol intake of 4 to 6/week Plan: From cardiology's perspective patient may be discharged home. Continue Eliquis, amlodipine, atorvastatin, lisinopril, chlorthalidone, and aspirin. We will follow up in the office with him next week at which time further recommendations will be made in regards to attempting to restore sinus mechanism. Nurse practitioner note has been reviewed, I agree with documented findings and plan of care. Patient was seen and examined. Objective - Vital Signs Vital signs: Vital Signs Temp 97.9 F 01/13/24 08:00 Pulse 77 01/13/24 08:00 Resp 16 01/13/24 08:00 BP 117/76 01/13/24 08:00 Pulse Ox 96 01/13/24 08:00 FiO2 Intake & Output 01/12/24 01/13/24 01/13/24 18:59 06:59 18:59 Intake Total 908 240 Balance 908 240 Intake: IV 200 Oral 708 240 Other: # Voids 1 # Bowel Movements 1 - Labs CBC & Chem 7: 01/12/24 05:28 01/12/24 10:36 Labs: Abnormal Lab Results - Last 24 Hours (Table) 01/12/24 01/12/24 Range/Units 05:28 10:36 Chloride 108 H (98-107) mmol/L Anion Gap 13.10 H (4.00-12.00) mmol/L BUN 21 H (9-20) mg/dL
== END 2024-01-13 10:40 | disposition home or self-care (01) | DRG 287 ==
LOC: EC 12:35 → 3SCARD 15:07 → 6NMEDSUR 16:08 → OBSVTOIN 01-12 17:37
PROVIDERS: ADMIT Student in an Organized Health Care Education/Training Program; ATTEND Student in an Organized Health Care Education/Training Program
PROC: B2111ZZ Fluoroscopy of Multiple Coronary Arteries using Low Osmolar Contrast (ICD-10-PCS; 2024-01-12)
PROC: 4A023N7 Measurement of Cardiac Sampling and Pressure, Left Heart, Percutaneous Approach (ICD-10-PCS; principal; 2024-01-12 09:13)
DX: I48.19 Other persistent atrial fibrillation (principal); E78.5 Hyperlipidemia, unspecified; I77.810 Thoracic aortic ectasia; I25.10 Atherosclerotic heart disease of native coronary artery without angina pectoris; I08.1 Rheumatic disorders of both mitral and tricuspid valves; N40.0 Benign prostatic hyperplasia without lower urinary tract symptoms; I10 Essential (primary) hypertension; R07.89 Other chest pain; Z79.01 Long term (current) use of anticoagulants; Z79.82 Long term (current) use of aspirin; Z79.899 Other long term (current) drug therapy; Z82.49 Family history of ischemic heart disease and other diseases of the circulatory system
CPT/HCPCS: 36415; 71046; 78582; 80048; 80053; 83690; 83735; 84443; 84484; 85025; 85379; 85610; 85730; 93005; 93306; 93458; 96365; 96366; 99291

== ENCOUNTER 2024-01-28 05:52 | Day surgery (SDC) | payer MEDICARE ==
[2024-01-28] MEDS: IV FLUID CONTINUATION 500 ML IV ONE (06:24)
[2024-01-28] MEDS: SODIUM CHLORIDE 0.9% 500 ML IV SCH (06:53)
[2024-01-28] MEDS ORDERED: PROPOFOL 10 MG/ML 20 ML VIAL IV ONE (07:05)
[2024-01-28] MEDS ORDERED: LIDOCAINE 1% INJ 10MG/ML (20 ML MDV) ONE (07:05)
--- NOTE | 2024-01-28 07:40 | P.PCN ---
Date of Procedure: 01/28/24 Description of Procedure: Indication: Atrial fibrillation Procedure Description: After explaining the procedure to the patient, it's risk and complications, blood pressure, heart rate and O2 saturation were monitored. The throat was sprayed with Cetacaine. Patient received sedation per anesthesia department. The probe was introduced into the esophagus without difficulty. Images were obtained. Following that, the probe was removed. There was no immediate complication. Findings: Left atrial size is dilated, left atrial appendage is normal. Left ventricular systolic function is mildly impaired with an estimated ejection fraction of 45 to 50% with global hypokinesis. The aortic valve, mitral valve and tricuspid valve appears to be normal ascending thoracic aorta appears to be normal. Contrast bubble study revealed no shunting across the interatrial septum. There was no evidence of pericardial effusion. Doppler: Pulse wave and color Doppler were obtained, and revealed moderate mitral with mild tricuspid and aortic regurgitation, there was no shunting by color Doppler study. Conclusion: 1. Dilated left atrium with normal appearance of the left atrial appendage 2. Normal ventricle size with mild global hypokinesis 3. Moderate mitral with mild tricuspid and aortic regurgitation 4. Normal appearance of the descending thoracic aorta 5. No shunting across the interatrial septum Cardioversion: After obtaining EDSON and obtaining sedated state by the anesthesia department a synchronized biphasic cardioversion using 150 J was performed with protestant of sinus mechanism, there was no immediate complications.
[2024-01-28 07:45] VITALS: TEMP 98
[2024-01-28 08:29] VITALS: RESP 16
[2024-01-28] MEDS ORDERED: NON FORMULARY DRUG (Aspirin Ec 81 MG Tablet) PO SCH (09:00)
[2024-01-28] MEDS ORDERED: TAMSULOSIN 0.4 MG CAP.ER.24H PO SCH (09:00)
[2024-01-28] MEDS ORDERED: CHLORTHALIDONE 25 MG TAB PO SCH (09:00)
[2024-01-28] MEDS ORDERED: NON FORMULARY DRUG (Amlodipine Besylate/Benazepril [Lotrel 5-20 Mg Capsule] 1 EACH Capsule PO SCH (09:00)
[2024-01-28] MEDS ORDERED: APIXABAN 5 MG TAB PO SCH (09:00)
[2024-01-28] MEDS ORDERED: allopurinoL 100 MG TAB PO SCH (09:00)
[2024-01-28 09:06] VITALS: BP 109/70; PULSE 63
[2024-01-28] MEDS ORDERED: ATORVASTATIN 40 MG TAB PO SCH (21:00)
== END 2024-01-28 09:14 | disposition home or self-care (01) ==
LOC: OR 05:52
PROVIDERS: ATTEND Internal Medicine Interventional Cardiology
DX: I48.11 Longstanding persistent atrial fibrillation (principal); I08.3 Combined rheumatic disorders of mitral, aortic and tricuspid valves; I10 Essential (primary) hypertension; I25.10 Atherosclerotic heart disease of native coronary artery without angina pectoris; E78.2 Mixed hyperlipidemia; G47.33 Obstructive sleep apnea (adult) (pediatric); F17.290 Nicotine dependence, other tobacco product, uncomplicated; Z79.82 Long term (current) use of aspirin; Z79.01 Long term (current) use of anticoagulants; Z79.899 Other long term (current) drug therapy
CPT/HCPCS: 93312; 93320; 93325; 92960; J2003; J2704

== ENCOUNTER → 2024-02-04 | Outpatient (CLI) | payer MEDICARE ==
[2024-02-04 15:49] LABS: ALT 9 U/L (10-49); AST 12 U/L (14-35); Chol/HDL Ratio 4.47 Ratio; LDL Cholesterol,Calculated 126.6 mg/dL (0.0-131.0)
== END | disposition home or self-care (01) ==
LOC: LABWHC1 08:31
PROVIDERS: ATTEND Internal Medicine Interventional Cardiology
DX: E78.2 Mixed hyperlipidemia (principal)
CPT/HCPCS: 36415; 80061; 84450; 84460

== ENCOUNTER 2024-09-13 18:28 | Inpatient (IN) | payer MEDICARE ==
[2024-09-13 19:14] LABS: Basophils # (A) 0.05 10*3/uL (0.00-0.10); Basophils % (A) 0.7 %; Eosinophils # (A) 0.15 10*3/uL (0.04-0.35); Eosinophils % (A) 2.0 %; HCT 38.7 % (39.6-50.0); HGB 13.3 g/dL (13.0-17.0); Lymphocytes # (A) 1.92 10*3/uL (0.90-5.00); Lymphocytes % (A) 26.1 %; MCH 30.5 pg (27.0-32.0); MCHC 34.4 g/dL (32.0-37.0); MCV 88.8 fL (80.0-97.0); Monocytes # (A) 0.55 10*3/uL (0.20-1.00); Monocytes % (A) 7.5 %; Neutrophils # (A) 4.67 10*3/uL (1.80-7.70); Neutrophils % (A) 63.3 %; Platelet Count 208 10*3/uL (140-440); RBC 4.36 10*6/uL (4.40-5.60); RDW 12.9 % (11.5-14.5); WBC 7.37 10*3/uL (4.50-10.00)
[2024-09-13 19:26] LABS: ALT 17 U/L (4-49); AST 24 U/L (17-59); African American GFR (CKD) 69 (>60 ml/min/1.73 sqM); Albumin 3.9 g/dL (3.5-5.0); Alkaline Phosphatase 38 U/L (38-126); Anion Gap 12 mmol/L; Blood Urea Nitrogen 29 mg/dL (9-20); Calcium 9.6 mg/dL (8.4-10.2); Carbon Dioxide 21 mmol/L (22-30); Chloride 105 mmol/L (98-107); Glucose 146 mg/dL (74-99); Magnesium 1.8 mg/dL (1.6-2.3); Non-African American GFR(CKD) 60 (>60 ml/min/1.73 sqM); Potassium 3.8 mmol/L (3.5-5.1); Sodium 138 mmol/L (137-145); Total Protein 6.0 g/dL (6.3-8.2)
[2024-09-13 19:27] LABS: INR 1.0 (<1.2); Partial Thromboplastin Time 25.1 sec (22.0-30.0); Prothrombin Time 10.8 sec (10.0-12.5)
--- NOTE | 2024-09-13 19:34 | XR ---
EXAMINATION TYPE: XR chest 2V DATE OF EXAM: 09/13/2024 7:24 PM COMPARISON: Prior chest radiograph 01/11/2024. CLINICAL INDICATION: Male, 69 years old with history of Chest Pain; [facility] TECHNIQUE: XR chest 2V Frontal and lateral views of the chest. FINDINGS: Lungs/Pleura: There is no evidence of pleural effusion, focal consolidation, or pneumothorax. Pulmonary vascularity: Unremarkable. Heart/mediastinum: Cardiomediastinal silhouette is unremarkable. Musculoskeletal: No acute osseous pathology. Other findings: None IMPRESSION: No acute cardiopulmonary disease/process. [facility], , 09/13/2024 7:32 PM
--- NOTE | 2024-09-13 19:58 | ED ---
Chest Pain HPI - General Source: patient, family, RN notes reviewed Mode of arrival: ambulatory Limitations: no limitations <Alycia Scott - Last Filed: 09/13/24 19:58> - General Source: patient, family, RN notes reviewed, old records reviewed Mode of arrival: ambulatory Limitations: no limitations - History of Present Illness MD Complaint: chest pain, other (Near syncope dizziness and weakness) -: days(s) Onset: during exertion Pain Location: substernal Pain Radiation: none Severity: moderate Severity scale (1-10): 4 Consistency: intermittent Improves With: nothing Worsens With: nothing Anginal Symptoms: dyspnea Other Symptoms: palpitations Treatments Prior to Arrival: none <Omid Rowell - Last Filed: 09/13/24 20:49> - General Chief Complaint: Chest Pain Stated Complaint: Chest pain, Afibb Time Seen by Provider: 09/13/24 19:58 - History of Present Illness Initial Comments: Quick note: 69-year-old male presented the ER for evaluation of chest pain and lightheadedness. Patient reports chest pain started around 330 this afternoon. He does admit to shortness of breath. Admits to history of atrial fibrillation. Family reports patient has been complaining of dizziness over the past couple of days. (Alycia Scott) This is a 69 male to ER for lightheadedness dizziness near syncopal event sleeping fatigue symptoms have been increasing for a few days now. Patient has history of A-fib and has been noting low heart rates and persistent A-fib on his Apple Watch (Omid Rowell) - Related Data Home Medications Medication Instructions Recorded Confirmed Aspirin EC [Ecotrin Low Dose] 81 mg PO DAILY 10/25/20 01/28/24 Tamsulosin HCl [Flomax] 0.4 mg PO DAILY 10/25/20 01/28/24 allopurinoL [Zyloprim] 100 mg PO DAILY 10/25/20 01/28/24 Chlorthalidone [Hygroton] 25 mg PO DAILY 01/11/24 01/28/24 amLODIPine BESYLATE/BENAZEPRIL 1 cap PO DAILY 01/11/24 01/28/24 [Lotrel 5-20 mg Capsule] Previous Rx's Medication Instructions Recorded Apixaban [Eliquis] 5 mg PO BID 30 Days #60 tab 01/13/24 Atorvastatin [Lipitor] 40 mg PO HS 30 Days #30 tab 01/13/24 Allergies Allergy/AdvReac Type Severity Reaction Status Date / Time No Known Allergies Allergy Verified 01/28/24 06:36 Review of Systems ROS Other: All systems not noted in ROS Statement are negative. <Alycia Scott - Last Filed: 09/13/24 19:58> ROS Other: All systems not noted in ROS Statement are negative. <Omid Rowell - Last Filed: 09/13/24 20:49> ROS Statement: Those systems with pertinent positive or pertinent negative responses have been documented in the HPI. Past Medical History Past Medical History: Atrial Fibrillation, Coronary Artery Disease (CAD), Hyperlipidemia, Hypertension Additional Past Medical History / Comment(s): hx. epigottitis, hx. Maharaj's Palsy, sleep study to be scheduled History of Any Multi-Drug Resistant Organisms: None Reported Past Surgical History: Bladder Surgery, Heart Catheterization, Joint Replacement Additional Past Surgical History / Comment(s): laser surgery bladder 2011, Lt TKA 2017, colonoscopy, Lt. rotator cuff repair Past Anesthesia/Blood Transfusion Reactions: No Reported Reaction Past Psychological History: No Psychological Hx Reported Smoking Status: Never smoker - Past Family History Father Family Medical History: Hypertension Additional Family Medical History / Comment(s): suicide age 48 Mother Family Medical History: Dementia <Alycia Scott - Last Filed: 09/13/24 19:58> General Exam Limitations: no limitations <Alycia Scott - Last Filed: 09/13/24 19:58> General appearance: alert, in no apparent distress Head exam: Present: atraumatic, normocephalic, normal inspection Eye exam: Present: normal appearance, PERRL, EOMI. Absent: scleral icterus, conjunctival injection, periorbital swelling ENT exam: Present: normal exam, mucous membranes moist Neck exam: Present: normal inspection. Absent: tenderness, meningismus, lymphadenopathy Respiratory exam: Present: normal lung sounds bilaterally. Absent: respiratory distress, wheezes, rales, rhonchi, stridor Cardiovascular Exam: Present: normal rhythm, bradycardia, normal heart sounds. Absent: systolic murmur, diastolic murmur, rubs, gallop, clicks GI/Abdominal exam: Present: soft, normal bowel sounds. Absent: distended, tenderness, guarding, rebound, rigid Extremities exam: Present: normal inspection, full ROM, normal capillary refill. Absent: tenderness, pedal edema, joint swelling, calf tenderness Back exam: Present: normal inspection Neurological exam: Present: alert, oriented X3, CN II-XII intact Psychiatric exam: Present: normal affect, normal mood Skin exam: Present: warm, dry, intact, normal color. Absent: rash <Omid Rowell - Last Filed: 09/13/24 20:49> - General Exam Comments Initial Comments: Visual Physical Exam Vital signs reviewed General: Well-appearing, nontoxic, no acute distress. Head: Normocephalic, atraumatic Eyes: PERRLA, EOMI ENT: Airway patent Chest: Nonlabored breathing Skin: No visual rash, normal skin tone Neuro: Alert and oriented 3 Musculoskeletal: No gross abnormalities (Alycia Scott) Course <Omid Rowell - Last Filed: 09/13/24 20:49> Vital Signs 09/13/24 18:32 Temperature 98 F Pulse Rate 40 L Respiratory 20 Rate Blood Pressure 113/75 O2 Sat by Pulse 98 Oximetry - Reevaluation(s) Reevaluation #1: 09/13/24 20:48 Medical records reviewed (Omid Rowell) Reevaluation #2: 09/13/24 20:48 Patient has maybe improvement in chest pain and no real feelings of recurrent syncope here in the ER (Omid Rowell) Reevaluation #3: 09/13/24 20:48 Patient informed of results questions answered (Omid Rowell) Reevaluation #4: Was pt. sent in by a medical professional or institution (, PA, ACCIDENT REPORT CLERK, urgent care, hospital, or custodial...) When possible be specific @ -no Did you speak to anyone other than the patient for history (EMS, parent, family, police, friend...)? What history was obtained from this source @ -no Did you review nursing and triage notes (agree or disagree)? Why? @ -agree Are old charts reviewed (outside hosp., previous admission, EMS record, old EKG, old radiological studies, urgent care reports/EKG's, custodial records)? Report findings @ -yes Differential Diagnosis (chest pain, altered mental status, abdominal pain women, abdominal pain men, vaginal bleeding, weakness, fever, dyspnea, syncope, headache, dizziness, GI bleed, back pain, seizure, CVA, palpatations, mental health, musculoskeletal)? @ -prior EKG interpreted by me (3pts min.). @ -yes X-rays interpreted by me (1pt min.). @ -yes negative for acute disease CT interpreted by me (1pt min.). @ -no U/S interpreted by me (1pt. min.). @ -no What testing was considered but not performed or refused? (CT, X-rays, U/S, labs)? Why? @ -none What meds were considered but not given or refused? Why? @ -none Did you discuss the management of the patient with other professionals (professionals i.e. , PA, ACCIDENT REPORT CLERK, lab, RT, psych nurse, social sciences instructor, refrigeration engineer, teacher, juvenile justice officer, case fitter)? Give summary @ -no Was smoking cessation discussed for >3mins.? @ -no Was critical care preformed (if so, how long)? @ -no Were there social determinants of health that impacted care today? How? (Homelessness, low income, unemployed, alcoholism, drug addiction, transportation, low edu. Level, literacy, decrease access to med. care, longterm, rehab)? @ -none Was there de-escalation of care discussed even if they declined (Discuss DNR or withdrawal of care, Hospice)? DNR status @ -no What co-morbidities impacted this encounter? (DM, HTN, Smoking, COPD, CAD, Cancer, CVA, ARF, Chemo, Hep., AIDS, mental health diagnosis, sleep apnea, morbid obesity)? @ -none Was patient admitted / discharged? Hospital course, mention meds given and route, prescriptions, significant lab abnormalities, going to OR and other pertinent info. @ - Undiagnosed new problem with uncertain prognosis? @ -no Drug Therapy requiring intensive monitoring for toxicity (Heparin, Nitro, Insulin, Cardizem)? @ -no Were any procedures done? @ -no Diagnosis/symptom? @ - Acute, or Chronic, or Acute on Chronic? @ -Acute Uncomplicated (without systemic symptoms) or Complicated (systemic symptoms)? @ -Complicated Side effects of treatment? @ -no Exacerbation, Progression, or Severe Exacerbation? @ -exacerbation Poses a threat to life or bodily function? How? (Chest pain, USA, MT, pneumonia, PE, COPD, DKA, ARF, appy, cholecystitis, CVA, Diverticulitis, Homicidal, Suicidal, threat to staff... and all critical care pts) @ -yes (Omid Rowell) Reevaluation #5: Differential Syncope: Valvular disease, hypertrophic cardiomyopathy, pulmonary embolism, tamponade, t achycardia, bradycardia, MT, hypovolemia, hemorrhage, dissection, anemia, intracranial hemorrhage, seizure, hypoglycemia, carbon monoxide poisoning, this is not meant to be an all-inclusive list. Differential Chest Pain: Stable Angina, Unstable Angina, STEMI, NSTEMI Aortic Dissection, Pneumothorax, Musculoskeletal, Esophageal Spasm GERD, Cholecystitis, Pancreatitis, Zoster, this is not meant to be an all-inclusive list. (Omid Rowell) - Consultations Consultation #1: Spoke with sound who agrees to admit this patient (Omid Rowell) Chest Pain MDM <Alycia Scott - Last Filed: 09/13/24 19:58> <Omid Rowell - Last Filed: 09/13/24 20:49> - MDM I performed the quick note portion of this chart. Electronically signed by Alycia Scott PA-C (Alycia Scott) 69 male with a near syncopal event bradycardia and PVCs. Patient will be admitted for cardiology evaluation regarding near syncope (Omid Rowell) Critical Care Time Critical Care Time: Yes Total Critical Care Time: 31 <Omid Rowell - Last Filed: 09/13/24 20:49> Disposition <Alycia Scott - Last Filed: 09/13/24 19:58> Is patient prescribed a controlled substance at d/c from ED?: No Time of Disposition: 20:45 <Omid Rowell - Last Filed: 09/13/24 20:49> Clinical Impression: Atypical chest pain, Chest pain, Near syncope, Bradycardia Disposition: ADMITTED IP TO THIS [facility] Condition: Serious Referrals: Arvin Sutton DO [Primary Care Provider] - 1-2 days
[2024-09-13] MEDS ORDERED: NALOXONE 0.4 MG/ML 1 ML VIAL IV PRN (20:46)
[2024-09-13] MEDS ORDERED: ONDANSETRON 4 MG/2 ML VIAL IVP PRN (20:46)
[2024-09-13] MEDS: HEPARIN SODIUM 1,000 UN/ML (10ML VL) IV ONE (23:56)
[2024-09-13] MEDS: HEPARIN SODIUM,PORCINE/D5W 25,000 UNIT in EMPTY BAG 1 BAG IV SCH (23:59)
--- NOTE | 2024-09-14 00:33 | P.HPIM ---
History of Present Illness H&P Date: 09/13/24 Patient is a 69-year-old male with a PMH of A-fib, hypertension, hyperlipidemia, BPH, sleep apnea, who presented to the ED with complaints of left-sided chest pain patient that occurred when he was doing some landscaping activity. He reported feeling a pressure-like pain on the left side of his chest that was nonradiating and was not associated with inspiration, no associated headaches sweating or redness of the face. He reported feeling lightheaded and experiencing some shortness of breath, he denies any syncope, he reported that the pain lasted for about 8 minutes and had significantly resolved by the time he got to the ED. He denies any sweating, nausea, vomiting, palpitations, feeling of impending doom, swelling or tenderness on any part of his chest. Patient reported that he has not experienced this type of pain in the past, there is a recent history of dyspnea on exertion. Patient stated that he is pretty active and has been doing a lot of landscaping activity lately. Patient stated he smokes cigars occasionally and drinks occasionally. Imaging and labs done at the ED; Chest x-ray revealed no acute cardiopulmonary disease/process EKG reviewed by me showed, sinus rhythm, T-wave inversion in lead II, ventricular premature complexes. HCT 38.7, Bicarb 21, BUN 29, Glucose 146, Troponin I - <0.012, Total protein 6.0 OR 32 bpm, RR18 cpm, BP127/84 mmHg, O2 Sat97% on room air ED documentation reviewed and case discussed with ED provider. [] Review of systems: Pertinent positives and negatives as discussed in HPI, a complete review of systems was performed and all other systems are negative. Physical examination: Vital signs reviewed General: non toxic, no distress, appears at stated age, normal weight Derm: no unusual rashes/lesions, warm Head: atraumatic, normocephalic, symmetric Eyes: EOMI, anicteric sclera, pupils equal round reactive to light ENT: Nose and ears atraumatic Neck: No cervical lymphadenopathy, trachea midline, supple Mouth: no lip lesion, mucus membranes moist Cardiovascular: S1S2 reg, bradycardic, no murmur, positive dorsalis pedis pulse bilateral, no edema Lungs: CTA bilateral, no rhonchi, no rales, no accessory muscle use Abdominal: soft, nontender to palpation, no guarding Ext: muscle strength 5 out of 5 in all 4 extremities grossly, no gross muscle atrophy Neuro: CN II-XI grossly intact, no gross focal neuro deficits Psych: Alert, oriented to person, place, and time Assessment/Plan: #Symptomatic Bradycardia *Patient did not report any syncopal episode, decreased heart rate at base line (38 - 61 bpm)confirmed by apple watch, decreased heart rate at the time of event. -Consult cardiology -Suspect required pacemaker implant -Hold Eliquis -Keep NPO stat -Continue cardiac telemetry #Paroxysmal Atrial fibrillation *Not on any AV control agent, not on metoprolol, cardizem #Coronary Artery Disease *Cardiac catheterization done 12/2024 revealed coronary calcifications, mild to moderate triple-vessel disease, right dominance, normal LVEDP, per cardiology recommendations at that time was to optimize medical therapy, lesion was not significant enough to proceed with PCI -Aspirin 81 mg p.o. daily #Hypertension -Amlodipine 5 mg p.o. daily -Chlorthalidone 25 mg p.o. daily -Lisinopril 20 mg p.o. daily #Hyperlipidemia -Atorvastatin 40 mg p.o. HS #Sleep Apnea *Patient does not uses a CPAP device, he is receiving surgical intervention from the dentist. DVT prophylaxis: IV heparin CODE STATUS: Full Discussed with: Patient Anticipated discharge place: Home Maddy Russell MD PGY-1 FM Dictation was produced using [employer] dictation software. please excuse any grammatical, word or spelling errors. I have seen and evaluated the patient today. Discussed with the resident and agree with the residents finding and plan as documented in the resident's note. Changes highlighted in blue font. Past Medical History Past Medical History: Atrial Fibrillation, Coronary Artery Disease (CAD), Hyperlipidemia, Hypertension Additional Past Medical History / Comment(s): hx. epigottitis, hx. Maharaj's Palsy, sleep study to be scheduled History of Any Multi-Drug Resistant Organisms: None Reported Past Surgical History: Bladder Surgery, Heart Catheterization, Joint Replacement Additional Past Surgical History / Comment(s): laser surgery bladder 2011, Lt TKA 2017, colonoscopy, Lt. rotator cuff repair Past Anesthesia/Blood Transfusion Reactions: No Reported Reaction Past Psychological History: No Psychological Hx Reported Smoking Status: Never smoker - Past Family History Father Family Medical History: Hypertension Additional Family Medical History / Comment(s): suicide age 48 Mother Family Medical History: Dementia Medications and Allergies Home Medications Medication Instructions Recorded Confirmed Type Aspirin EC [Ecotrin Low Dose] 81 mg PO DAILY 10/25/20 01/28/24 History Tamsulosin HCl [Flomax] 0.4 mg PO DAILY 10/25/20 01/28/24 History allopurinoL [Zyloprim] 100 mg PO DAILY 10/25/20 01/28/24 History Chlorthalidone [Hygroton] 25 mg PO DAILY 01/11/24 01/28/24 History amLODIPine BESYLATE/BENAZEPRIL 1 cap PO DAILY 01/11/24 01/28/24 History [Lotrel 5-20 mg Capsule] Apixaban [Eliquis] 5 mg PO BID 30 Days #60 tab 01/13/24 01/28/24 Rx Atorvastatin [Lipitor] 40 mg PO HS 30 Days #30 tab 01/13/24 01/28/24 Rx Allergies Allergy/AdvReac Type Severity Reaction Status Date / Time No Known Allergies Allergy Verified 01/28/24 06:36 Physical Exam Vitals: Vital Signs Temp Pulse Resp BP Pulse Ox 09/13/24 23:35 30 L 18 127/84 97 09/13/24 18:32 98 F 40 L 20 113/75 98 Intake and Output 09/13/24 09/13/24 09/14/24 14:59 22:59 06:59 Other: Weight 111.13 kg Results CBC & Chem 7: 09/13/24 23:31 09/13/24 19:00 Labs: Abnormal Lab Results - Last 24 Hours (Table) 09/13/24 09/13/24 Range/Units 19:00 19:00 RBC 4.36 L (4.40-5.60) 10*6/uL Hct 38.7 L (39.6-50.0) % Carbon Dioxide 21 L (22-30) mmol/L BUN 29 H (9-20) mg/dL Glucose 146 H (74-99) mg/dL Total Protein 6.0 L (6.3-8.2) g/dL
[2024-09-14 00:57] LABS: Basophils # (A) 0.06 10*3/uL (0.00-0.10); Basophils % (A) 0.8 %; Eosinophils # (A) 0.19 10*3/uL (0.04-0.35); Eosinophils % (A) 2.4 %; HCT 41.5 % (39.6-50.0); HGB 13.8 g/dL (13.0-17.0); Lymphocytes # (A) 2.18 10*3/uL (0.90-5.00); Lymphocytes % (A) 27.4 %; MCH 29.7 pg (27.0-32.0); MCHC 33.3 g/dL (32.0-37.0); MCV 89.4 fL (80.0-97.0); Monocytes # (A) 0.62 10*3/uL (0.20-1.00); Monocytes % (A) 7.8 %; Neutrophils # (A) 4.90 10*3/uL (1.80-7.70); Neutrophils % (A) 61.5 %; Platelet Count 228 10*3/uL (140-440); RBC 4.64 10*6/uL (4.40-5.60); RDW 13.0 % (11.5-14.5); WBC 7.96 10*3/uL (4.50-10.00)
[2024-09-14 01:57] LABS: INR 1.1 (<1.2); Partial Thromboplastin Time 82.0 sec (22.0-30.0); Prothrombin Time 11.8 sec (10.0-12.5)
[2024-09-14 07:18] LABS: Basophils # (A) 0.05 10*3/uL (0.00-0.10); Basophils % (A) 0.7 %; Eosinophils # (A) 0.16 10*3/uL (0.04-0.35); Eosinophils % (A) 2.2 %; HCT 39.2 % (39.6-50.0); HGB 13.1 g/dL (13.0-17.0); Lymphocytes # (A) 2.30 10*3/uL (0.90-5.00); Lymphocytes % (A) 30.9 %; MCH 29.8 pg (27.0-32.0); MCHC 33.4 g/dL (32.0-37.0); MCV 89.1 fL (80.0-97.0); Monocytes # (A) 0.53 10*3/uL (0.20-1.00); Monocytes % (A) 7.1 %; Neutrophils # (A) 4.37 10*3/uL (1.80-7.70); Neutrophils % (A) 58.7 %; Platelet Count 204 10*3/uL (140-440); RBC 4.40 10*6/uL (4.40-5.60); RDW 13.0 % (11.5-14.5); WBC 7.44 10*3/uL (4.50-10.00)
[2024-09-14 07:33] LABS: INR 1.0 (<1.2); Prothrombin Time 10.9 sec (10.0-12.5)
[2024-09-14 08:03] LABS: ALT 16 U/L (4-49); AST 18 U/L (17-59); African American GFR (CKD) 74 (>60 ml/min/1.73 sqM); Albumin 3.7 g/dL (3.5-5.0); Alkaline Phosphatase 43 U/L (38-126); Anion Gap 6 mmol/L; Blood Urea Nitrogen 22 mg/dL (9-20); Calcium 9.5 mg/dL (8.4-10.2); Carbon Dioxide 25 mmol/L (22-30); Chloride 109 mmol/L (98-107); Glucose 94 mg/dL (74-99); Magnesium 2.0 mg/dL (1.6-2.3); Non-African American GFR(CKD) 64 (>60 ml/min/1.73 sqM); Potassium 3.9 mmol/L (3.5-5.1); Sodium 140 mmol/L (137-145); Total Protein 5.8 g/dL (6.3-8.2)
[2024-09-14] MEDS ORDERED: NITROGLYCERIN SL TABS 0.4 MG TAB SUBLINGUAL PRN (08:21)
[2024-09-14] MEDS ORDERED: ALPRAZolam 0.5 MG TAB PO PRN (08:21)
[2024-09-14] MEDS ORDERED: ALPRAZolam 0.25 MG TAB PO PRN (08:21)
[2024-09-14] MEDS: NITROGLYCERIN OINT 1 INCH/GM PACKET TOPICAL SCH (11:10)
[2024-09-14] MEDS: TAMSULOSIN 0.4 MG CAP.ER.24H PO SCH (11:11)
[2024-09-14] MEDS: ASPIRIN 81 MG PO SCH (11:11)
[2024-09-14] MEDS: amLODIPine 5 MG TAB PO SCH (11:12)
[2024-09-14] MEDS: ATORVASTATIN 80 MG TAB PO STA (11:48)
[2024-09-14] MEDS: ASPIRIN 325 MG TAB PO STA (11:48)
--- NOTE | 2024-09-14 12:13 | P.CRDCN ---
History of Present Illness Consult date: 09/14/24 Reason for Consult (text): Bradycardia History of present illness: This is a 69-year-old male patient of Dr. Sher with past medical history of longstanding persistent atrial fibrillation previously maintaining sinus rhythm, CAD, nonischemic cardiomyopathy with EF greater than 35%, dyslipidemia, hypertension, severe obstructive sleep apnea, frequent PVCs, cigar smoker. We have been asked to evaluate the patient for bradycardia. Patient states that yesterday he developed chest pain in the afternoon. He states it happened while he was lifting 40 pound bags of landscaping rock out of a truck. He states he had to pause any had chest pain that was on the left side of his chest and it was pressure tight. He states he has not had this type of chest pain in the past. He is currently chest pain-free. Due to bradycardia that was listed as 30 bpm on vital signs, metoprolol succinate is on hold. He has been started on a heparin drip. Dr. Carroll discussed recommendations for cardiac catheterization and patient is agreeable to move forward with this and it will be scheduled for tomorrow. Blood pressure 120/77, heart rate lowest 30, pulse ox 100% on room air. -EKG: Sinus rhythm with PVCs, #2 sinus rhythm with bigeminy -Chest x-ray: No acute process. -Laboratory studies: Troponin negative x 3. TSH 0.775. Hemoglobin 13.1, cre atinine 1.17. Magnesium 2.0. -Home cardiac medications: Amlodipine/benazepril 5-20 mg 1 daily, Eliquis 5 mg twice daily, chlorthalidone 25 mg daily, metoprolol succinate 25 mg daily, Crestor 10 mg daily. -Cardiac catheterization performed 01/12/2024 revealed mild to moderate triple- vessel disease with no high-grade stenosis. -EDSON performed 01/28/2024 revealed EF 47%, mild TR, mild AR, moderate MR. Followed by cardioversion. -Event monitor 07/13/2024 revealed frequent PVCs, sinus rhythm. Review Of Systems: At the time of my exam: CONSTITUTIONAL: Denies fever or chills. HEENT: Denies blurred vision, vision changes, or eye pain. Denies hemoptysis CARDIOVASCULAR: Denies chest pain. Denies orthopnea. Denies PND. Denies palpitations RESPIRATORY: Denies shortness of breath. GASTROINTESTINAL: Denies abdominal pain. Denies nausea or vomiting. HEMATOLOGIC: Denies bleeding disorders. GENITOURINARY: Denies any blood in urine. SKIN: Denies puritis. Denies rash. Physical examination: Gen: This is 69-year-old male in no acute distress. VS: reviewed HEENT: Head is atraumatic, normocephalic. Pupils equal, round. Sclerae is anicteric. NECK: Supple. No JVD. LUNGS: Clear to auscultation. No wheezes or rhonchi. No intercostal retractions. HEART: Regular rate and rhythm. No murmur. ABDOMEN: Soft No tenderness. EXTREMITIES: No pedal edema. No calf tenderness. NEUROLOGICAL: Patient is awake, alert and oriented x3. Assessment: Unstable angina Bradycardia, most likely secondary to frequent PVCs bigeminy History of coronary artery disease with mild to moderate triple-vessel disease i n 2023 Persistent atrial fibrillation currently in sinus rhythm Nonischemic cardiomyopathy with EF greater than 35% Dyslipidemia Hypertension Severe obstructive sleep apnea Frequent PVCs Cigar smoker Plan: Resume patient's home cardiac medications Continue to hold metoprolol succinate 25 mg for possible bradycardia Schedule patient for cardiac catheterization with Dr. Sher on N.p.o. after midnight Obtain 2-D echocardiogram and Doppler study to assess cardiac structure and function Further recommendations to follow based upon clinical course Thank you kindly for this consultation. Nurse practitioner note has been reviewed, I agree with documented findings and plan of care. Patient was seen and examined. Past Medical History Past Medical History: Atrial Fibrillation, Coronary Artery Disease (CAD), Hyperlipidemia, Hypertension Additional Past Medical History / Comment(s): hx. epigottitis, hx. Maharaj's Palsy, sleep study to be scheduled History of Any Multi-Drug Resistant Organisms: None Reported Past Surgical History: Bladder Surgery, Heart Catheterization, Joint Replacement Additional Past Surgical History / Comment(s): laser surgery bladder 2011, Lt TKA 2017, colonoscopy, Lt. rotator cuff repair Past Anesthesia/Blood Transfusion Reactions: No Reported Reaction Past Psychological History: No Psychological Hx Reported Smoking Status: Never smoker - Past Family History Father Family Medical History: Hypertension Additional Family Medical History / Comment(s): suicide age 48 Mother Family Medical History: Dementia Medications and Allergies Home Medications Medication Instructions Recorded Confirmed Type Tamsulosin HCl [Flomax] 0.4 mg PO DAILY 10/25/20 09/14/24 History allopurinoL [Zyloprim] 100 mg PO DAILY 10/25/20 09/14/24 History Chlorthalidone [Hygroton] 25 mg PO DAILY 01/11/24 09/14/24 History amLODIPine BESYLATE/BENAZEPRIL 1 cap PO DAILY 01/11/24 09/14/24 History [Lotrel 5-20 mg Capsule] Apixaban [Eliquis] 5 mg PO BID 30 Days #60 tab 01/13/24 09/14/24 Rx Metoprolol Succinate (ER) [Toprol 25 mg PO HS 09/14/24 09/14/24 History Xl] Rosuvastatin [Crestor] 10 mg PO DAILY 09/14/24 09/14/24 History Allergies Allergy/AdvReac Type Severity Reaction Status Date / Time No Known Allergies Allergy Verified 09/14/24 09:55 Physical Exam Vitals: Vital Signs Temp Pulse Pulse Resp BP BP Pulse Ox 09/14/24 02:31 97.6 F 32 L 17 120/77 100 09/14/24 01:49 34 L 16 107/76 96 09/13/24 23:35 30 L 18 127/84 97 09/13/24 18:32 98 F 40 L 20 113/75 98 Intake and Output 09/13/24 09/14/24 09/14/24 22:59 06:59 14:59 Intake Total 26.503 Balance 26.503 Intake: Intake, IV Titration 26.503 Amount Heparin Sodium,Porcine/ 26.503 D5w 25,000 unit In Empty Bag 1 bag @ 8.999 UNIT/KG /HR 10.001 mls/hr IV . Q24H [facility] Rx#:[id number] Other: Voiding Method Toilet # Voids 1 Weight 111.13 kg 111 kg Results 09/14/24 06:52 09/14/24 06:52 Cardiac Enzymes 09/13/24 09/13/24 09/13/24 Range/Units 19:00 19:00 23:30 AST 24 (17-59) U/L Troponin I <0.012 <0.012 (0.000-0.034) ng/mL 09/14/24 Range/Units 06:52 AST (17-59) U/L Troponin I <0.012 (0.000-0.034) ng/mL Coagulation 09/13/24 09/13/24 09/14/24 Range/Units 19:00 23:31 06:52 PT 10.8 11.8 10.9 (10.0-12.5) sec APTT 25.1 82.0 H (22.0-30.0) sec 09/14/24 Range/Units 08:00 PT (10.0-12.5) sec APTT 38.0 H (22.0-30.0) sec CBC 09/13/24 09/13/24 09/14/24 Range/Units 19:00 23:31 06:52 WBC 7.37 7.96 7.44 (4.50-10.00) 10*3/uL RBC 4.36 L 4.64 4.40 (4.40-5.60) 10*6/uL Hgb 13.3 13.8 13.1 (13.0-17.0) g/dL Hct 38.7 L 41.5 39.2 L (39.6-50.0) % Plt Count 208 228 204 (140-440) 10*3/uL Comprehensive Metabolic Panel 09/13/24 Range/Units 19:00 Sodium 138 (137-145) mmol/L Potassium 3.8 (3.5-5.1) mmol/L Chloride 105 (98-107) mmol/L Carbon Dioxide 21 L (22-30) mmol/L BUN 29 H (9-20) mg/dL Creatinine 1.24 (0.66-1.25) mg/dL Glucose 146 H (74-99) mg/dL Calcium 9.6 (8.4-10.2) mg/dL AST 24 (17-59) U/L ALT 17 (4-49) U/L Alkaline Phosphatase 38 (38-126) U/L Total Protein 6.0 L (6.3-8.2) g/dL Albumin 3.9 (3.5-5.0) g/dL Current Medications Generic Name Dose Route Start Last Admin Trade Name Freq PRN Reason Stop Dose Admin Allopurinol 100 mg 09/14/24 09:00 Allopurinol 100 Mg Tab PO DAILY [facility] Amlodipine Besylate 5 mg 09/14/24 09:00 Amlodipine 5 Mg Tab PO DAILY [facility] Aspirin 81 mg 09/14/24 09:00 Aspirin 81 Mg PO DAILY [facility] Atorvastatin Calcium 40 mg 09/14/24 21:00 Atorvastatin 40 Mg Tab PO HS [facility] Chlorthalidone 25 mg 09/14/24 09:00 Chlorthalidone 25 Mg Tab PO DAILY [facility] Fluticasone Propionate 2 spray 09/14/24 09:00 Fluticasone Nasal 50mcg/[place] 16gm Btl EA NOSTRIL BID [facility] Heparin Sodium (Porcine) 0 unit 09/13/24 23:31 Heparin Sodium 1,000 Un/Ml (10ml Vl) IV PER PROTOCOL PRN Low PTT Protocol Heparin Sodium/Dextrose 25,000 250 mls @ 10.001 mls/hr 09/13/24 23:45 09/14/24 02:38 unit/ IV Solution IV 6.999 unit/kg/hr .Q24H [facility] 7.778 mls/hr Titration Protocol 8.999 UNIT/KG/HR Lisinopril 20 mg 09/14/24 09:00 Lisinopril 20 Mg Tab PO DAILY [facility] Naloxone HCl 0.2 mg 09/13/24 20:46 Naloxone 0.4 Mg/Ml 1 Ml Vial IV Q2M PRN Opioid Reversal Ondansetron HCl 4 mg 09/13/24 20:46 Ondansetron 4 Mg/2 Ml Vial IVP Q8HR PRN Nausea And Vomiting Tamsulosin HCl 0.4 mg 09/14/24 09:00 Tamsulosin 0.4 Mg Cap.Er.24h PO DAILY [facility] Intake and Output 09/13/24 09/14/24 09/14/24 22:59 06:59 14:59 Intake Total 26.503 Balance 26.503 Intake: Intake, IV Titration 26.503 Amount Heparin Sodium,Porcine/ 26.503 D5w 25,000 unit In Empty Bag 1 bag @ 8.999 UNIT/KG /HR 10.001 mls/hr IV . Q24H [facility] Rx#:[id number] Other: Voiding Method Toilet # Voids 1 Weight 111.13 kg 111 kg 09/14/24 06:52 09/13/24 19:00
[2024-09-14] MEDS: CHLORTHALIDONE 25 MG TAB PO SCH (16:43)
[2024-09-14] MEDS: FLUTICASONE NASAL 50MCG/SPRAY 16GM BTL EA NOSTRIL SCH (16:43)
[2024-09-14] MEDS: HEPARIN SODIUM 1,000 UN/ML (10ML VL) IV PRN (17:56)
--- NOTE | 2024-09-14 19:41 | P.PN ---
Subjective Progress Note Date: 09/14/24 Patient is comfortable this morning with no overnight events. He denies chest pain, shortness of breath, lightheadedness, palpitations, or nausea. He also denies fever or chills. Plans for left heart catherization 09/15. REVIEW OF SYSTEMS: Pertinent positives and negatives noted in HPI. Objective - Vital Signs Vital signs: Vital Signs Temp 97.6 F 09/14/24 02:31 Pulse 32 L 09/14/24 02:31 Resp 17 09/14/24 02:31 BP 120/77 09/14/24 02:31 Pulse Ox 100 09/14/24 02:31 FiO2 Intake & Output 09/13/24 09/13/24 09/14/24 06:59 18:59 06:59 Intake Total 26.503 Balance 26.503 Weight 111.13 kg 111 kg Intake: Intake, IV Titration 26.503 Amount Heparin Sodium,Porcine/ 26.503 D5w 25,000 unit In Empty Bag 1 bag @ 8.999 UNIT/KG /HR 10.001 mls/hr IV . Q24H [facility] Rx#:[id number] Other: Voiding Method Toilet # Voids 1 - Exam VITAL SIGNS: Reviewed GENERAL: Resting comfortably in bed. Obese. EYES: PERRL, no scleral injection or icterus. CARDIOVASCULAR: S1 and S2 present. No murmurs, rubs, or gallops. PULMONARY: Chest is clear to auscultation, no wheezing, rhonchi, or crackles. ABDOMEN: Soft, nontender, nondistended. No palpable organomegaly. NEUROLOGICAL: Alert and oriented. Gross neurological examination with no apparent focal deficits. EXTREMITIES: No pedal edema. SKIN: No apparent rashes. - Labs CBC & Chem 7: 09/14/24 20:04 09/14/24 20:04 Labs: Abnormal Lab Results - Last 24 Hours (Table) 09/13/24 09/13/24 09/13/24 Range/Units 19:00 19:00 23:31 RBC 4.36 L (4.40-5.60) 10*6/uL Hct 38.7 L (39.6-50.0) % APTT 82.0 H (22.0-30.0) sec Carbon Dioxide 21 L (22-30) mmol/L BUN 29 H (9-20) mg/dL Glucose 146 H (74-99) mg/dL Total Protein 6.0 L (6.3-8.2) g/dL Assessment and Plan Plan: #Stable angina - Patient did not report any syncopal episode, decreased heart rate at baseline (38 - 61 bpm)confirmed by apple watch, decreased heart rate at the time of event. This is likely secondary to bigeminy due to PVCs. - Cardio will resume home medications, but will hold metoprolol succinate 25mg for possible bradycardia - Cardiac cath planned with Dr. Baez on 09/15, NPO after midnight - Continue cardiac telemetry - CXR with no acute cardiopulmonary process - Trops 0.012 > 0.012 - TSH in normal range, A1C and Lipid panel pending - ECHO pending - Ordered CBC and BMP -Also on topical nitroglycerin 1 inch every 8 hours #Paroxysmal Atrial fibrillation - Eliquis and metoprolol held - On heparin drip, monitor APTT. #Coronary Artery Disease - Cardiac catheterization done 12/2024 revealed coronary calcifications, mild to moderate triple-vessel disease, right dominance, normal LVEDP, per cardiology recommendations at that time was to optimize medical therapy, lesion was not significant enough to proceed with PCI - Continue Aspirin 81 mg and Lipitor 40 mg PO daily Chronic conditions #Hypertension - Continue Amlodipine 5 mg PO, Chlorthalidone 25 mg PO, Lisinopril 20 mg PO daily #Hyperlipidemia - Continue Lipitor 40 mg PO #Sleep Apnea - Patient does not uses a CPAP device, he is receiving surgical intervention from the dentist. #BPH - Continue Flomax DVT prophylaxis: IV Heparin CODE STATUS: Full F: None E: Replete as needed N: Heart healthy diet A: Ambulatory Discussed with: Patient Anticipated discharge time and place: Home pending clinical course Yong Dallas MD Internal Medicine Resident, PGY1 I have seen and evaluated the patient today. Discussed with the resident and agree with the residents finding and plan as documented in the resident's note. Changes highlighted in blue font.
[2024-09-14] MEDS: ATORVASTATIN 40 MG TAB PO SCH (19:48)
[2024-09-14 20:35] LABS: Basophils # (A) 0.06 10*3/uL (0.00-0.10); Basophils % (A) 0.8 %; Eosinophils # (A) 0.16 10*3/uL (0.04-0.35); Eosinophils % (A) 2.3 %; HCT 39.0 % (39.6-50.0); HGB 13.1 g/dL (13.0-17.0); Lymphocytes # (A) 2.26 10*3/uL (0.90-5.00); Lymphocytes % (A) 31.8 %; MCH 30.0 pg (27.0-32.0); MCHC 33.6 g/dL (32.0-37.0); MCV 89.4 fL (80.0-97.0); Monocytes # (A) 0.48 10*3/uL (0.20-1.00); Monocytes % (A) 6.8 %; Neutrophils # (A) 4.12 10*3/uL (1.80-7.70); Neutrophils % (A) 57.9 %; Platelet Count 209 10*3/uL (140-440); RBC 4.36 10*6/uL (4.40-5.60); RDW 13.1 % (11.5-14.5); WBC 7.11 10*3/uL (4.50-10.00)
[2024-09-14 21:07] LABS: African American GFR (CKD) 58 (>60 ml/min/1.73 sqM); Anion Gap 6 mmol/L; Blood Urea Nitrogen 23 mg/dL (9-20); Calcium 9.8 mg/dL (8.4-10.2); Carbon Dioxide 25 mmol/L (22-30); Chloride 107 mmol/L (98-107); Glucose 106 mg/dL (74-99); Non-African American GFR(CKD) 50 (>60 ml/min/1.73 sqM); Potassium 4.0 mmol/L (3.5-5.1); Sodium 138 mmol/L (137-145)
[2024-09-15 02:21] LABS: Cholesterol 129.00 mg/dL (0.00-200.00); HDL Cholesterol 42.20 mg/dL (40.00-60.00); LDL Cholesterol,Calculated 59.4 mg/dL (0.0-131.0); Triglycerides 137.00 mg/dL (0.00-149.00); VLDL Calculation 27.40 mg/dL (5.00-40.00)
--- NOTE | 2024-09-15 10:39 | P.PN ---
Subjective Progress Note Date: 09/15/24 Patient is doing well this morning without complaints of chest pain, lightheadedness, or shortness of breath. He denies nausea, fever, or chills. Cardiac cath planned for today with Dr. Adams. REVIEW OF SYSTEMS: Pertinent positives and negatives noted in HPI. Objective - Vital Signs Vital signs: Vital Signs Temp 98.2 F 09/15/24 04:58 Pulse 62 09/15/24 04:58 Resp 17 09/15/24 04:58 BP 119/71 09/15/24 04:58 Pulse Ox 92 L 09/15/24 04:58 FiO2 Intake & Output 09/14/24 09/15/24 09/15/24 18:59 06:59 18:59 Intake Total 709.263 Balance 709.263 Weight 112 kg Intake: Intake, IV Titration 119.263 Amount Heparin Sodium,Porcine/ 119.263 D5w 25,000 unit In Empty Bag 1 bag @ 8.999 UNIT/KG /HR 10.001 mls/hr IV . Q24H [facility] Rx#:[id number] Oral 590 Other: Voiding Method Toilet # Voids 2 2 - Exam VITAL SIGNS: Reviewed GENERAL: Resting comfortably in bed. Obese. EYES: PERRL, no scleral injection or icterus. CARDIOVASCULAR: S1 and S2 present. No murmurs, rubs, or gallops. PULMONARY: Chest is clear to auscultation, no wheezing, rhonchi, or crackles. ABDOMEN: Soft, nontender, nondistended. No palpable organomegaly. NEUROLOGICAL: Alert and oriented. Gross neurological examination with no apparent focal deficits. EXTREMITIES: No pedal edema. SKIN: No apparent rashes. - Labs CBC & Chem 7: 09/14/24 20:04 09/14/24 20:04 Labs: Abnormal Lab Results - Last 24 Hours (Table) 09/14/24 09/14/24 09/14/24 Range/Units 06:52 08:00 20:04 RBC 4.36 L (4.40-5.60) 10*6/uL Hct 39.0 L (39.6-50.0) % APTT 38.0 H (22.0-30.0) sec Chloride 109 H (98-107) mmol/L BUN 22 H (9-20) mg/dL Creatinine (0.66-1.25) mg/dL Glucose (74-99) mg/dL Total Protein 5.8 L (6.3-8.2) g/dL 09/14/24 09/15/24 Range/Units 20:04 00:00 RBC (4.40-5.60) 10*6/uL Hct (39.6-50.0) % APTT 61.8 H (22.0-30.0) sec Chloride (98-107) mmol/L BUN 23 H (9-20) mg/dL Creatinine 1.43 H (0.66-1.25) mg/dL Glucose 106 H (74-99) mg/dL Total Protein (6.3-8.2) g/dL Assessment and Plan Plan: #Stable angina - Patient did not report any syncopal episode, decreased heart rate at baseline (38 - 61 bpm)confirmed by apple watch, decreased heart rate at the time of event. This is likely secondary to bigeminy due to PVCs. - Cardio will resume home medications, but will hold metoprolol succinate 25mg for possible bradycardia - Continue cardiac telemetry - CXR with no acute cardiopulmonary process - Trops 0.012 > 0.012 - TSH in normal range, A1C 5.8% and Lipid panel in normal range. - ECHO pending - Also on topical nitroglycerin 1 inch every 8 hours started - Cardiac cath with Dr. Baez on 09/15 - Check BMP #Paroxysmal Atrial fibrillation - Eliquis and metoprolol held - On heparin drip, monitor APTT #Coronary Artery Disease - Cardiac catheterization done 12/2024 revealed coronary calcifications, mild to moderate triple-vessel disease, right dominance, normal LVEDP, per cardiology recommendations at that time was to optimize medical therapy, lesion was not significant enough to proceed with PCI - Continue Aspirin 81 mg and Lipitor 40 mg PO daily Chronic conditions #Hypertension - Continue Amlodipine 5 mg PO, Chlorthalidone 25 mg PO, Lisinopril 20 mg PO daily #Hyperlipidemia - Continue Lipitor 40 mg PO #Sleep Apnea - Patient does not uses a CPAP device, he is receiving surgical intervention from the dentist. #BPH - Continue Flomax DVT prophylaxis: IV Heparin CODE STATUS: Full F: None E: Replete as needed N: Heart healthy diet A: Ambulatory Discussed with: Patient Anticipated discharge time and place: Home pending clinical course Yong Dallas MD Internal Medicine Resident, PGY1 I have seen and evaluated the patient today. Discussed with the resident and agree with the residents finding and plan as documented in the resident's note. Changes highlighted in blue font.
[2024-09-15] MEDS: IV FLUID CONTINUATION 1,000 ML IV ONE (11:00)
[2024-09-15] MEDS: LIDOCAINE 1% INJ 10MG/ML (20 ML MDV) SQ ONE (11:19)
[2024-09-15] MEDS: fentaNYL (PF) 50 MCG/1 ML VIAL IVP ONE (11:19)
[2024-09-15] MEDS: HEPARIN SODIUM,PORCINE 10,000 UNIT in SODIUM CHLORIDE 0.9% 1,000 ML IRRIGATION PRN (11:20)
[2024-09-15] MEDS: HEPARIN SODIUM,PORCINE (1 ML) 2,500 UNIT in SODIUM CHLORIDE 0.9% 250 ML IRRIGATION PRN (11:21)
[2024-09-15] MEDS: MIDAZOLAM 2 MG/2 ML VIAL IVP ONE (11:23)
[2024-09-15] MEDS: VERAPAMIL SYRINGE (5 MG/10 ML) INTRAARTER ONE (11:23)
[2024-09-15] MEDS: HEPARIN SODIUM 1,000 UN/ML (10ML VL) IVP ONE (11:26)
[2024-09-15] MEDS: IOPAMIDOL-370 100ML BTL INJ ONE (11:35)
[2024-09-15] MEDS ORDERED: RX INFO: IV CONTRAST WAS GIVEN 1 EACH MISC MISCELLANE PRN (11:45)
[2024-09-15] MEDS ORDERED: SODIUM CHLORIDE 0.9% 1,000 ML IV SCH (11:45)
--- NOTE | 2024-09-15 11:52 | P.CARDCATH ---
Date of Procedure: 09/15/24 Description of Procedure: Cardiac Catheterization: The patient is a 69-year-old male with a known history of hypertension, hyperlipidemia, history of CAD who presented with symptoms of chest discomfort but no enzymatic changes, he was evaluated by Dr. Carroll recommendations were made regarding cardiac catheterization, the risks and the complications were discussed with the patient who is in full understanding and agreement. Procedure Description: Patient was brought to clinical laboratory scientist in fasting semi-sedated state after receiving Fentanyl and Benadryl achieiving moderate conscious sedated state. Using Xylocaine Anesthesia and modified Seldinger technique, a 6-Emirati sheath was introduced in the right radial artery . Subsequently, selective coronary angiography was performed using a 5-Emirati 3.5 bend Vera catheter. Multiple views of the coronary artery including hemiaxial views were obtained. The 5 Emirati pigtail catheter was used to cross the aortic valve and LVEDP was calculated. Following that, catheter and sheath were removed. Hemostasis was obtained with deployment of vascular band . There was no immediate complication. Patient was returned to room in stable condition. Of note, the patient received a total of 5000 units of intravenous heparin as well as intra-arterial verapamil. Findings: Left main: This is a large size vessel, bifurcating into LAD and left circumflex, left main has no obstructive disease. LAD: This is a large size vessel, reaching to the apex, giving rise to a moderately sized diagonal branch in the proximal segment. The LAD and the diagonal branch have mild intimal disease of 20 to 30%. Left circumflex: This is a nondominant vessel, giving rise to 1 obtuse marginal branch. The proximal and mid left circumflex has diffuse intimal disease of 50 to 60%. At the bifurcation of the obtuse marginal branch there is a 80% stenosis beyond that the vessel is very small. RCA: This is a large dominant vessel, bifurcating distally to PDA and PLV. The right coronary artery in the midsegment has mild intimal disease of 10 to 20%. There is 20 to 30% plaque distally with no high-grade stenosis. Left Ventriculogram: Not performed Hemodynamics: There was no gradient across the aortic valve, LVEDP was 10-14 mmHg Conclusion: 1. Mild to moderate obstructive disease in the LAD and the RCA 2. Mild to moderate diffuse disease in the proximal and mid left circumflex with severe disease distally with small size vessel beyond it. No progression since 2023 3. Right dominance 4. Normal LVEDP Recommendations: In view of the anatomy I have recommended to continue medical therapy with the aggressive coronary risks modification initiated. The findings and the recommendations were discussed with the patient and the family and they were in full understanding and agreement. Duration of sedation is 18 minutes.
[2024-09-15 13:18] VITALS: RESP 18; TEMP 98.1
--- NOTE | 2024-09-15 14:41 | P.DS ---
Providers Date of admission: 09/15/24 07:31 Expected date of discharge: 09/15/24 Attending physician: Darin Oates MD Consults: 09/13/24 20:46 Consult Physician Routine Consulting Provider: Kev Sher Consult Reason/Comments: rodri Do you want consulting provider notified?: Yes Primary care physician: Arvin Sutton Hospital Course: Discharge diagnoses: Premature ventricular contractions, bigeminy pattern Chest pain, ACS ruled out Chronic conditions: Paroxysmal atrial fibrillation, nonobstructive coronary artery disease, hypertension, hyperlipidemia, sleep apnea, BPH Hospital course: Patient is a 69-year-old male with a PMH of A-fib, hypertension, hyperlipidemia, BPH, sleep apnea, who presented to the ED with complaints of left-sided chest pain patient that occurred when he was doing some landscaping activity. He reported feeling a pressure-like pain on the left side of his chest that was nonradiating and was not associated with inspiration, no associated headaches sweating or redness of the face. He reported feeling lightheaded and experiencing some shortness of breath, he denies any syncope, he reported that the pain lasted for about 8 minutes and had significantly resolved by the time he got to the ED. He denies any sweating, nausea, vomiting, palpitations, feeling of impending doom, swelling or tenderness on any part of his chest. Patient reported that he has not experienced this type of pain in the past, there is a recent history of dyspnea on exertion. Patient stated that he is pretty active and has been doing a lot of landscaping activity lately. Patient stated he smokes cigars occasionally and drinks occasionally. Troponins negative. TSH, A1c, lipid panel all in normal range. Chest x-ray with no acute cardiopulmonary process. His decreased heart rate at baseline (38 - 61 bpm) confirmed by apple watch is likely secondary to bigeminy PVCs, resulting in inaccurate reading. During hospital stay, patient diagnosed with premature ventricular contractions with bigeminy. Left heart catheterization showed mild to moderate obstructive disease in the LAD and the RCA, mild to moderate diffuse disease in the proximal and mid left circumflex with severe disease distally with small size vessel beyond that. There was no progression seen since 2023. Dr. Carroll recommends aggressive coronary risk modification. He will follow-up with Dr. Carroll outpatient in a week. He was treated with aspirin 81 mg, topical nitroglycerin, and his home meds Lipitor 40 mg, amlodipine 5 mg, chlorthalidone 25 mg, lisinopril 20 mg. Home metoprolol succinate 25 mg and Eliquis 5 mg twice daily held during hospital stay. Patient discharged to home in stable condition. New medications are aspirin 81 mg daily. Discontinue metoprolol 25 mg until appointment with Dr. Carroll. Otherwise resume home medications. Follow up with structural engineering project manager Dr. Carroll in a week. No labs to complete. VITAL SIGNS: Reviewed GENERAL: Resting comfortably in bed. Obese. EYES: PERRL, no scleral injection or icterus. CARDIOVASCULAR: S1 and S2 present. No murmurs, rubs, or gallops. PULMONARY: Chest is clear to auscultation, no wheezing, rhonchi, or crackles. ABDOMEN: Soft, nontender, nondistended. No palpable organomegaly. NEUROLOGICAL: Alert and oriented. Gross neurological examination with no apparent focal deficits. EXTREMITIES: No pedal edema. SKIN: No apparent rashes. Yong Dallas MD Internal Medicine Resident, PGY1 Dictation was produced using [employer] dictation software. please excuse any g rammatical, word or spelling errors. A total of 38 minutes of time were spent preparing this complex discharge summary. Patient was discharged on 09/15/2024 at 1356. I have seen and evaluated the patient today. Discussed with the resident and agree with the residents finding and plan as documented in the resident's note. Changes highlighted in blue font. Patient Condition at Discharge: Stable Plan - Discharge Summary New Discharge Prescriptions: New Aspirin 81 mg PO DAILY #60 tab Continue allopurinoL [Zyloprim] 100 mg PO DAILY Tamsulosin HCl [Flomax] 0.4 mg PO DAILY amLODIPine BESYLATE/BENAZEPRIL [Lotrel 5-20 mg Capsule] 1 cap PO DAILY Chlorthalidone [Hygroton] 25 mg PO DAILY Apixaban [Eliquis] 5 mg PO BID 30 Days #60 tab Rosuvastatin [Crestor] 10 mg PO DAILY Discontinued Metoprolol Succinate (ER) [Toprol Xl] 25 mg PO HS Discharge Medication List Tamsulosin HCl [Flomax] 0.4 mg PO DAILY 10/25/20 [History] allopurinoL [Zyloprim] 100 mg PO DAILY 10/25/20 [History] Chlorthalidone [Hygroton] 25 mg PO DAILY 01/11/24 [History] amLODIPine BESYLATE/BENAZEPRIL [Lotrel 5-20 mg Capsule] 1 cap PO DAILY 01/11/24 [History] Apixaban [Eliquis] 5 mg PO BID 30 Days #60 tab 01/13/24 [Rx] Rosuvastatin [Crestor] 10 mg PO DAILY 09/14/24 [History] Aspirin 81 mg PO DAILY #60 tab 09/15/24 [Rx] Follow up Appointment(s)/Referral(s): Kev Sher MD [STAFF PHYSICIAN] - 1 Week Arvin Sutton DO [Primary Care Provider] - 1-2 days Patient Instructions/Handouts: Noncardiac Chest Pain (DC) Activity/Diet/Wound Care/Special Instructions: Please see PCP and cardiology. Discharge Disposition: HOME SELF-CARE
[2024-09-15 15:12] LABS: African American GFR (CKD) 85 (>60 ml/min/1.73 sqM); Anion Gap 6 mmol/L; Blood Urea Nitrogen 19 mg/dL (9-20); Calcium 9.5 mg/dL (8.4-10.2); Carbon Dioxide 24 mmol/L (22-30); Chloride 107 mmol/L (98-107); Glucose 103 mg/dL (74-99); Non-African American GFR(CKD) 74 (>60 ml/min/1.73 sqM); Potassium 4.2 mmol/L (3.5-5.1); Sodium 137 mmol/L (137-145)
[2024-09-15 16:20] VITALS: BP 113/70; PULSE 52
== END 2024-09-15 16:55 | disposition home or self-care (01) | DRG 287 ==
LOC: EC 18:28 → SUPCPDRO 18:28 → 1SOBS 20:47 → 3SCARD 09-14 00:37 → OBSVTOIN 09-15 07:31
PROVIDERS: ADMIT Internal Medicine; ATTEND Internal Medicine
PROC: B2111ZZ Fluoroscopy of Multiple Coronary Arteries using Low Osmolar Contrast (ICD-10-PCS; 2024-09-15)
PROC: 4A023N7 Measurement of Cardiac Sampling and Pressure, Left Heart, Percutaneous Approach (ICD-10-PCS; principal; 2024-09-15 10:30)
DX: I25.110 Atherosclerotic heart disease of native coronary artery with unstable angina pectoris (principal); I42.8 Other cardiomyopathies; I48.11 Longstanding persistent atrial fibrillation; E78.5 Hyperlipidemia, unspecified; G51.0 Bell's palsy; I10 Essential (primary) hypertension; F17.290 Nicotine dependence, other tobacco product, uncomplicated; G47.33 Obstructive sleep apnea (adult) (pediatric); R00.1 Bradycardia, unspecified; I49.3 Ventricular premature depolarization; N40.0 Benign prostatic hyperplasia without lower urinary tract symptoms; Z79.01 Long term (current) use of anticoagulants; Z79.82 Long term (current) use of aspirin; Z79.899 Other long term (current) drug therapy; Z82.49 Family history of ischemic heart disease and other diseases of the circulatory system; Z96.652 Presence of left artificial knee joint
CPT/HCPCS: 36415; 71046; 80048; 80053; 80061; 83036; 83735; 84100; 84443; 84484; 85025; 85610; 85730; 93005; 96365; 96366; 99291